=== PATIENT | female | born 1965 | race Caucasian/White ===

== ENCOUNTER 2021-02-15 14:49 | Emergency (ER) | payer MEDICAID, SELFPAY ==
[2021-02-15 15:28] VITALS: BP 123/73; PULSE 84; RESP 16; TEMP 36.5; O2SAT 98; BMI 20.5
--- NOTE | 2021-02-15 16:13 | ED.GENADULT ---
HPI - General Adult General Chief complaint: General Medical Stated complaint: hip pain, hand pain Time Seen by Provider: 02/15/21 16:13 History of Present Illness HPI narrative: Patient complains of flare up of chronic pain in the right hip and right hand, this is similar to many prior flare ups, there is no new injury no fever Patient is visiting for few days and will be returning to her home in [place] in 3 days Related Data Previous Rx's Medication Instructions Recorded cyclobenzaprine 5 mg PO TID PRN #10 tab 02/15/21 hydrocodone-acetaminophen 1 tab PO Q6H PRN #10 tab 02/15/21 Allergies Allergy/AdvReac Type Severity Reaction Status Date / Time No Known Allergies Allergy Unverified 06/22/20 17:16 Review of Systems Review of Systems: Patient is positive for right hand and right hip pain Negatives are no fever no chills no dizziness or weakness no headache no neck pain no chest pain no abdominal pain no back pain no numbness weakness or tingling no skin rash Yes all other systems are reviewed and are negative PMFSH Past Medical History Source: nursing notes reviewed Medical History (Updated 02/16/21 @ 00:01 by Krystle Pierre) Bipolar II disorder Chronic GERD Chronic interstitial cystitis Depression Fibromyalgia Greater trochanteric pain syndrome of right lower extremity IBS (irritable bowel syndrome) Insomnia Kidney stone Trigger finger of right hand Trochanteric bursitis, right hip UTI (urinary tract infection) Social History Social History Advance Directives: No Advance Directives Information Provided: No Patient : No Physical Exam Vital Signs: Vital Signs: Last Vital Signs Temp 97.7 F 02/15/21 15:28 Pulse 84 02/15/21 15:28 Resp 16 02/15/21 15:28 BP 123/73 02/15/21 15:28 Pulse Ox 98 02/15/21 15:28 Body Mass Index 20.5 General appearance no distress Head is normocephalic atraumatic Neck is supple Respiratory no acute distress Abdomen is soft nontender Extremities there is mild tenderness to the right hip but has full range of motion, same with right hand which has mild tenderness, but no redness or warmth no wounds, motor and sensory are intact in the hand as well as the right leg distal to the hip Other extremities normal Skin no rash Neuro no gross motor or sensory deficit Course Course Course Narrative: No sign of skin infection or joint infection and patient ambulated easily from the emergency room Discharge Plan Discharge Clinical Impression: Bursitis of hip, right Patient Disposition: Home, Self-Care Additional Instructions: Follow with her doctors in [place] when you go home Friday Return any concerns Prescriptions: New hydrocodone-acetaminophen 5-325 mg tablet 1 tab PO Q6H PRN (Reason: pain) Qty: 10 RF: 0 cyclobenzaprine 5 mg tablet 5 mg PO TID PRN (Reason: muscle spasm) Qty: 10 RF: 0 Interventions: ED Discharge Assessment Last Done: 02/15/21 16:29 Discharge Date/Time: 02/15/21 16:30
== END 2021-02-15 16:30 | disposition home or self-care (01) ==
PROVIDERS: Emergency Provider Emergency Medicine
DX: M70.71 Other bursitis of hip, right hip (principal)
CPT/HCPCS: 99283

== ENCOUNTER 2021-09-24 11:01 | Emergency (ER) | payer MEDICAID, SELFPAY | END 2021-09-24 16:00 | disposition left against medical advice (07) | PROVIDERS: Emergency Provider Emergency Medicine | DX: M25.559 Pain in unspecified hip (principal) ==

== ENCOUNTER 2022-03-14 15:45 | Emergency (ER) | payer MEDICAID, SELFPAY ==
--- NOTE | ~2022-03-14 | XR_ITS ---
EXAMINATION: XR FINGER, RIGHT CLINICAL INFORMATION: Right thumb pain and limited range of motion. COMPARISON: None TECHNIQUE: PA view of the hand and lateral and oblique views of the right thumb. FINDINGS: Soft tissues are swollen at the thumb MCP joint. No acute fracture or malalignment. Tiny marginal osteophytes are present at multiple joints and including the interphalangeal joints and MCP joints and first CMC joint. The tip of the hamate appears unfused to the base. No erosions. Bone mineralization is normal. 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 No acute osseous findings. Soft tissue swelling at the thumb MCP joint. Tip of the hook of the hamate is not fused, likely developmental.
--- NOTE | ~2022-03-14 | XR_ITS ---
EXAMINATION: XR LEFT HIP WITH AP PELVIS CLINICAL INFORMATION: CT dated 12/24/2016. COMPARISON: None TECHNIQUE: AP view of the pelvis and a single view of the left hip were obtained. FINDINGS: Small acetabular osteophytes. No fracture or malalignment. Bones are osteopenic. Pubic symphysis is normal. Joint spaces are well-preserved. Mild degenerative spondylosis in the lower lumbar spine. Small marginal osteophytes are also present in the right hip. Soft tissues are unremarkable. XR/XR hip LT min 2V IMPRESSION: Minimal osteoarthritis in the hips. No acute fracture or malalignment.
[2022-03-14 15:54] VITALS: BP 108/69; PULSE 91; RESP 18; TEMP 36.6; O2SAT 98; BMI 21.6
--- NOTE | 2022-03-14 17:34 | ED_ITS ---
HPI - Extremity Injury (Lower) General Chief Complaint: Extremity Injury, Lower Stated Complaint: neck pain/hip pain Time Seen by Provider: 03/14/22 17:32 Source: patient Mode of arrival: ambulatory Limitations: no limitations History of Present Illness HPI Narrative: 56-year-old female presents for left hip pain and pain in her right hand. States she has had chronic pain in her right hand, and was seen in the [facility] for this. States they could not help her with her pain in her right hand. Patient states 2 years ago she started to have left hip pain, it was worsening for the last 2 months and now is much worse last 2 days. Patient does state that she is on her feet a lot. No recent fall, trauma, or injury no fevers, no paresthesias, no bowel or bladder incontinence, no history Related Data Previous Rx's Medication Instructions Recorded cyclobenzaprine 5 mg tablet 5 mg PO TID PRN muscle spasm #10 02/15/21 tabs hydrocodone 5 mg-acetaminophen 325 1 tab PO Q6H PRN pain #10 tabs 02/15/21 mg tablet cyclobenzaprine 5 mg tablet 5 mg PO TID 5 days #15 tabs 03/14/22 ketorolac 10 mg tablet 10 mg PO TID 5 days #15 tabs 03/14/22 Allergies Allergy/AdvReac Type Severity Reaction Status Date / Time No Known Allergies Allergy Unverified 06/22/20 17:16 Review of Systems Constitutional: Constitutional: Denies body ache(s), Denies chills, Denies fatigue, Denies fever(s), Denies malaise and Denies weakness Eyes: Eyes: Denies diplopia Cardiovascular: Cardiovascular: Denies chest pain, Denies syncope, Denies leg edema, Denies lightheadedness, Denies Loss of Consciousness, Denies palpitations and Denies dyspnea Respiratory: Respiratory: Denies chest congestion, Denies cough and Denies dyspnea Gastrointestinal: Gastrointestinal: Denies abdominal pain, Denies hematochezia, Denies constipation, Denies fecal incontinence, Denies diarrhea, Denies nausea and Denies vomiting Genitourinary: Genitourinary: Denies dysuria and Denies urinary incontinence Musculoskeletal: Musculoskeletal: Denies back pain, Denies deformity, Reports arthralgias, Denies numbness, Reports radiating pain into limb and Denies tingling Neurologic: Denies confusion, Denies syncope, Denies numbness, Denies tingling and Denies weakness Psychiatric: Psychiatric: Denies anxiety, Denies confusion and Denies depression Endocrine: Endocrine: Denies fatigue and Denies palpitations PMFSH Past Medical History Medical History Bipolar II disorder Chronic GERD Chronic interstitial cystitis Depression Fibromyalgia Greater trochanteric pain syndrome of right lower extremity IBS (irritable bowel syndrome) Insomnia Kidney stone Trigger finger of right hand Trochanteric bursitis, right hip UTI (urinary tract infection) Social History Social History Advance Directives: No Advance Directives Information Provided: No Physical Exam Vital Signs: Vital Signs: Last Vital Signs Temp 98 F 03/14/22 15:54 Pulse 91 03/14/22 15:54 Resp 18 03/14/22 15:54 BP 108/69 03/14/22 15:54 Pulse Ox 98 03/14/22 15:54 O2 Del Method 03/14/22 15:54 BMI result Body Mass Index 21.6 Const: General: No confusion Nutritional Appearance: well nourished Orientation/consciousness: No confusion Limitations: no limitations Eyes: Conjunctivae: conjunctivae normal Pupils: Equal, round and reactive pupils present EOM: EOMs intact bilaterally Neck: Neck: Yes full ROM, Yes no lymphadenopathy and Yes supple Resp: Effort & Inspection: normal respiratory effort and able to speak in complete sentences Auscultation: clear to auscultation bilaterally, no crackles, no rales, no rhonchi and no wheezes Cardio: Rate: regular rate Rhythm: regular rhythm Heart sounds: S1 normal heart sound present and S2 normal heart sound present GI: Inspection: Yes normal to inspection Palpation (GI): Soft to palpation, nontender, no guarding and not rigid Percussion: Yes normal to percussion Auscultation: normal bowel sounds Skin: General skin exam: no rashes or lesions noted Neuro: General: No confusion Cranial nerves: Yes Equal, round and reactive pupils present Extrem: Right upper extremity: full ROM, normal capillary refill and wrist (ganglion cyst) Details: tenderness (over cyst), normal ROM, normal vascular exam, radial pulse present and ulnar pulse present; no swelling, no unusual warmth, no ecchymosis, no crepitus and no deformity Left lower extremity: full ROM, normal capillary refill, no joint enlargement and hip/thigh Details: normal to inspection, tenderness Location: of the hip Location: laterally and normal ROM; no ecchymosis, no crepitus, no deformity and no unusual warmth; no cyanosis and no edema Psych: Appearance: grossly normal Affect: normal affect Attitude: cooperative Thought process: Normal thought process present Course Course Course Narrative: 56-year-old female presents for left hip pain and right hand pain. X-ray shows osteoarthritis and hips osteoarthritis and right MCP joint. Patient also has a ganglion cyst in her right wrist. Patient has intact left lower extremity pulses, sensation, motor strength, DTR. She is tender on her left lateral hip. 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 Treated with ketorolac and Flexeril, will have patient follow-up with orthopedics. All patient's questions were answered,, return precautions given FINDINGS: Small acetabular osteophytes. No fracture or malalignment. Bones are osteopenic. Pubic symphysis is normal. Joint spaces are well-preserved. Mild degenerative spondylosis in the lower lumbar spine. Small marginal osteophytes are also present in the right hip. Soft tissues are unremarkable. XR/XR hip LT min 2V IMPRESSION: Minimal osteoarthritis in the hips. No acute fracture or malalignment. 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 No acute osseous findings. Soft tissue swelling at the thumb MCP joint. Tip of the hook of the hamate is not fused, likely developmental. Discharge Plan Discharge Clinical Impression: Arthritis of left hip, Ganglion cyst of dorsum of right wrist Patient Disposition: Home, Self-Care Instructions: Osteoarthritis (ED), Ganglion Cysts (ED) Additional Instructions: your x-ray shows arthritis in both of your hips and your right hand. You also appear to have a ganglion cyst in your right hand. I have prescribed medicine to your pharmacy that will help with the acute arthritis pain. However, you may need to get injections in your hip, so I will have you follow-up with orthopedics. I have referred you to them, but if you do not hear from them, please call them at this number: [phone] Prescriptions: New cyclobenzaprine 5 mg tablet 5 mg PO TID 5 Days Qty: 15 0RF ketorolac 10 mg tablet 10 mg PO TID 5 Days Qty: 15 0RF No Action hydrocodone-acetaminophen 5-325 mg tablet 1 tab PO Q6H PRN (Reason: pain) Qty: 10 0RF cyclobenzaprine 5 mg tablet 5 mg PO TID PRN (Reason: muscle spasm) Qty: 10 0RF Referrals: Paulo Sage MD [Physician] - Interventions: ED Discharge Assessment Last Done: 03/14/22 18:19 Discharge Date/Time: 03/14/22 18:19
[2022-03-14] MEDS: Cyclobenzaprine HCl 5 MG TABLET PO (18:13)
[2022-03-14] MEDS: Ketorolac Tromethamine 15 MG/ML VIAL IM (18:14)
== END 2022-03-14 18:19 | disposition home or self-care (01) ==
PROVIDERS: Emergency Provider Emergency Medicine
DX: M16.0 Bilateral primary osteoarthritis of hip (principal); M67.431 Ganglion, right wrist; M19.041 Primary osteoarthritis, right hand
CPT/HCPCS: 73140; 73502; 96372; 99283; 99284; J1885

== ENCOUNTER 2022-03-20 11:13 | Emergency (ER) | payer MEDICAID, SELFPAY ==
--- NOTE | ~2022-03-20 | XR_ITS ---
EXAMINATION: XR KNEE, RIGHT CLINICAL INFORMATION: Trauma COMPARISON: None TECHNIQUE: Four views of the right knee. FINDINGS: Bone alignment is normal. No fracture or dislocation is seen. There are small osteophytes at the patellofemoral joint. Joint spaces are otherwise normal. There is no joint effusion. XR/XR knee RT 3V IMPRESSION: Mild degenerative changes.
[2022-03-20 11:39] VITALS: BP 100/43; PULSE 76; RESP 19; TEMP 36.6; O2SAT 98; BMI 20.1
--- NOTE | 2022-03-20 13:58 | ED_ITS ---
HPI - Extremity Injury (Lower) General Chief Complaint: Extremity Injury, Lower Stated Complaint: fall r knee inj Time Seen by Provider: 03/20/22 13:57 Source: patient Mode of arrival: ambulatory Limitations: no limitations History of Present Illness HPI Narrative: Patient presents emergency department for evaluation of right knee pain. She states that she had a slip and fall at work 5 days ago, has been having right knee pain since. Denies any popping, locking, or giving out of the knee. Denies numbness or tingling to the extremity. Denies any calf pain. She ambulates with a cane. Of note patient was seen in the emergency department 6 days ago for hip and wrist pain. Was given new prescriptions for ketorolac in cyclobenzaprine which she has been taking, but is requesting prescription for Tylenol days in addition as her knee pain is completely relieved with medication. Patient states that she was given contact information for an orthopedist follow-up with, but has not yet been able to schedule an appointment. Related Data Previous Rx's Medication Instructions Recorded cyclobenzaprine 5 mg tablet 5 mg PO TID PRN muscle spasm #10 02/15/21 tabs hydrocodone 5 mg-acetaminophen 325 1 tab PO Q6H PRN pain #10 tabs 02/15/21 mg tablet cyclobenzaprine 5 mg tablet 5 mg PO TID 5 days #15 tabs 03/14/22 ketorolac 10 mg tablet 10 mg PO TID 5 days #15 tabs 03/14/22 acetaminophen 500 mg capsule 1,000 mg PO Q6H PRN pain #30 caps 03/20/22 Allergies Allergy/AdvReac Type Severity Reaction Status Date / Time No Known Allergies Allergy Unverified 06/22/20 17:16 Review of Systems Review of Systems: Musculoskeletal: Positive knee pain Yes all other systems are reviewed and are negative PMFSH Past Medical History Attestation statement: The following information was validated with the patient. Source: old records reviewed Medical History Bipolar II disorder Chronic GERD Chronic interstitial cystitis Depression Fibromyalgia Greater trochanteric pain syndrome of right lower extremity IBS (irritable bowel syndrome) Insomnia Kidney stone Trigger finger of right hand Trochanteric bursitis, right hip UTI (urinary tract infection) Physical Exam 2 Vital Signs: Vital Signs: Last Vital Signs Temp 98 F 03/20/22 11:39 Pulse 76 03/20/22 11:39 Resp 19 03/20/22 11:39 BP 100/43 L 03/20/22 11:39 Pulse Ox 98 03/20/22 11:39 O2 Del Method 03/20/22 11:39 BMI result Body Mass Index 20.1 Vital signs have been reviewed as normal and appeared to be correct. Blood pressure normal.? Heart rate normal.? Respiration rate normal. Temperature normal.? Oxygen saturation normal. Appearance: Alert.?Oriented to person, place and time. No acute distress.?Normal affect. Eyes: Pupils equal, round and reactive to light.? ENT: Pharynx normal.?? Neck: Normal inspection.? Neck supple.?? CVS: Heart sounds normal. Normal heart rate and rhythm.? Pulses normal.?? Respiratory: No respiratory distress.? Lung sounds clear to auscultation bilaterally?? Abdomen: Soft and non-tender. Skin: Skin warm and dry.? Normal skin color.? ? Extremities: No lower extremity edema.? No calf ttp. No effusion, crepitus, erythema warmth or rash. Valgus stress test negative, varus stress test negative, anterior drawer test negative, posterior drawer test negative, Sue test negative. Neuro: Moves all extremities spontaneously. Sensation intact bilaterally. No motor deficits. Ambulates with normal steady gait. Course Course Course Narrative: Patient is a 56-year-old female being evaluated for traumatic right knee pain. XR reveals no acute fracture dislocation. No erythema warmth fevers or chills, not consistent with septic arthritis. Wells score negative, unlikely DVT. Currently using a cane, ambulating with steady gait. Requesting prescription for Tylenol to be used in addition to Flexeril and ketorolac that she is currently prescribed. Suspect her pain to be secondary to a sprain of her knee in the setting of recent injury, advised outpatient follow-up with her primary care provider, discussed reasons to return back to the emergency department, all questions were answered and she was discharged home in stable condition. MDM - Extremity Injury (Lower) Medical Records Attestation: I reviewed the patient's medical records. Imaging Data XR knee: Radiologist's impression: FINDINGS: Bone alignment is normal. No fracture or dislocation is seen. There are small osteophytes at the patellofemoral joint. Joint spaces are otherwise normal. There is no joint effusion.? XR/XR knee RT 3V IMPRESSION: Mild degenerative changes. Discharge Plan Discharge Clinical Impression: Knee sprain Patient Disposition: Home, Self-Care Instructions: Knee Sprain (ED), R.I.C.E. Treatment (ED) Additional Instructions: As we discussed the x-ray of your right knee does not show any fracture dislocation. Please continue to take pain medication; ketorolac and cyclobenzaprine as previously prescribed. You can take Tylenol 500 mg, 2 tablets (1,000mg) every 4-6 hours as needed for pain, but not to exceed 3 doses daily (3,000mg).? Please contact orthopedic office to schedule an appointment for evaluation as previously advised, there contact phone numbers for [phone]. You may return to emergency department with any new or worsening symptoms or concerns. Prescriptions: New acetaminophen 500 mg capsule 1,000 mg PO Q6H PRN (Reason: pain) Qty: 30 0RF Rx Instructions: Do not exceed 3 doses, 3000 mg in one day No Action hydrocodone-acetaminophen 5-325 mg tablet 1 tab PO Q6H PRN (Reason: pain) Qty: 10 0RF cyclobenzaprine 5 mg tablet 5 mg PO TID PRN (Reason: muscle spasm) Qty: 10 0RF cyclobenzaprine 5 mg tablet 5 mg PO TID 5 Days Qty: 15 0RF ketorolac 10 mg tablet 10 mg PO TID 5 Days Qty: 15 0RF Discharge Date/Time: 03/20/22 14:28
== END 2022-03-20 14:28 | disposition home or self-care (01) ==
PROVIDERS: Emergency Provider Emergency Medicine
DX: S83.91XA Sprain of unspecified site of right knee, initial encounter (principal); W01.0XXA Fall on same level from slipping, tripping and stumbling without subsequent striking against object, initial encounter; Y93.9 Activity, unspecified; Y92.9 Unspecified place or not applicable; Y99.0 Civilian activity done for income or pay
CPT/HCPCS: 73562; 99283

== ENCOUNTER → 2022-04-04 08:55 | Outpatient (BNVA) | payer MEDICAID, SELFPAY | PROVIDERS: PCP Internal Medicine; Visit Provider Physician Assistant | DX: M54.16 Radiculopathy, lumbar region (principal) | CPT/HCPCS: 99202 ==

== ENCOUNTER → 2023-01-21 09:15 | Outpatient (BNVA) | payer MEDICAID, SELFPAY | PROVIDERS: PCP Registered Nurse; Visit Provider Nurse Practitioner | DX: K21.9 Gastro-esophageal reflux disease without esophagitis (principal); K59.04 Chronic idiopathic constipation | CPT/HCPCS: 99202 ==

== ENCOUNTER 2023-01-24 11:18 | Outpatient (REF) | payer MEDICAID, SELFPAY ==
[2023-01-24 11:36] LABS: MANUAL DIFF FLAG NO
[2023-01-24 12:24] LABS: Basophils Percent Auto 0.3 % (0-2); Eosinophils Absolute Auto 0.1 X10*3/uL (0.0-0.4); Eosinophils Percent Auto 1.8 % (0-4); Hematocrit 37.7 % (37.0-47.0); Hemoglobin 11.7 g/dl (12.0-16.0); Imm Gran Abs Auto 0.03 X10*3/uL (0.00-0.03); Imm Gran Pct Auto 0.4 % (0.0-0.4); Lymphocytes Absolute Auto 1.8 X10*3/uL (1.2-4.9); Lymphocytes Percent Auto 24.7 % (20-40); Mean Corpuscular Hemoglobin 28.7 pg (27.0-33.0); Mean Corpuscular Volume 92.6 fL (80.0-98.0); Mean Platelet Volume 8.8 fL (9.4-12.3); Monocytes Absolute Auto 0.5 X10*3/uL (0.1-1.2); Monocytes Percent Auto 6.2 % (2-11); Neutrophils Absolute Auto 4.8 x10*3/uL (2.0-8.3); Neutrophils Percent Auto 66.6 % (45-73); Platelet Count 339 X10*3/uL (160-400); Red Blood Count 4.07 X10*6/uL (4.20-5.50); Red Cell Distribution Width 12.2 % (11.0-16.0); White Blood Count 7.2 X10*3/uL (4.8-10.8)
[2023-01-24 13:01] LABS: Alanine Aminotransferase 11 U/L (0-31); Albumin Level 3.9 g/dL (3.5-5.0); Alkaline Phosphatase 70 U/L (39-117); Anion Gap 10 (12-20); Aspartate Amino Transferase 16 U/L (5-31); Bilirubin Total 0.3 mg/dL (0.0-1.0); Blood Urea Nitrogen 12 mg/dL (9-16); Carbon Dioxide 29 mmol/L (22-29); Chloride 110 mmol/L (96-108); Estimated Glomerular Filt Rate > 60; Glucose Random 79 mg/dL (60-115); Potassium 4.3 mmol/L (3.3-5.1); Sodium 145 mmol/L (135-145); Total Protein 6.3 g/dL (6.5-8.0)
[2023-01-24 13:17] LABS: TSH reflex Free T4 1.37 uIU/mL (0.32-4.0)
== END 2023-01-24 11:19 | disposition home or self-care (01) ==
LOC: HO.LAB 11:18
PROVIDERS: Visit Provider Nurse Practitioner
DX: K21.9 Gastro-esophageal reflux disease without esophagitis (principal); K59.04 Chronic idiopathic constipation
CPT/HCPCS: 36415; 80053; 84443; 85025

== ENCOUNTER 2023-02-03 13:17 | Outpatient (REF) | payer MEDICAID, SELFPAY ==
[2023-02-06 06:13] LABS: HPV mRNA E6/E7 rflx Not Detected (Not Detected)
== END 2023-02-03 13:18 | disposition home or self-care (01) ==
LOC: HO.LNP 13:17
PROVIDERS: PCP Registered Nurse; Visit Provider Obstetrics & Gynecology
DX: Z01.419 Encounter for gynecological examination (general) (routine) without abnormal findings (principal); Z11.51 Encounter for screening for human papillomavirus (HPV)
CPT/HCPCS: 87624; 88142

== ENCOUNTER → 2023-02-06 13:05 | Outpatient (BNVA) | payer MEDICAID, SELFPAY | PROVIDERS: Visit Provider Surgery Vascular Surgery | DX: I83.12 Varicose veins of left lower extremity with inflammation (principal) | CPT/HCPCS: 99202 ==

== ENCOUNTER → 2023-02-25 08:33 | Outpatient (REF) | payer MEDICAID, SELFPAY ==
--- NOTE | ~2023-02-25 | NM_ITS ---
EXAMINATION: HI RADIONUCLIDE SOLID FOOD GASTRIC EMPTYING 4-HOUR STUDY CLINICAL INFORMATION: Gastroesophageal reflux disease without esophagitis. COMPARISON: None available. TECHNIQUE: A standard meal consisting of 4 oz of Egg Beaters brand tagged with 1000 microcuries Tc-99m Sulfur Colloid, 8 oz water and 2 slices of toast with jelly was administered orally to the patient. Images were obtained using a dual head gamma camera in the anterior and posterior projections over of the stomach immediately post ingestion and at hourly intervals up to 4 hours post ingestion. The anterior and posterior counts at each time interval were averaged using the geometric mean and expressed as percentage of the immediate post ingestion counts. FINDINGS: There is good visualization of activity in the stomach immediately post ingestion. As the study progresses, there is good clearance of activity from the stomach and visualization of progressively increasing small bowel activity. By the end of the study, there is almost no retention noted in the stomach. Retention in the stomach at each time interval was: 1 hour 82% (normal 37%-90%) 2 hours 58% (normal 30%-60%) 3 hours 8% 4 hours 3% (normal 0%-10%) HI/HI gastric emptying study IMPRESSION: Normal 4-hour solid food gastric emptying study. (For solid meal, rapid gastric emptying is less than 30% at 60 minutes. Delayed gastric emptying criteria is more than 60% remaining at 120 minutes or more than 10% at 240 minutes. The 4-hour value is the best discriminator of a normal or abnormal result). Gastric emptying study grading per JNMT Consensus Recommendations in 2008 (https://tech.snmjournals.org/content/36/44) Grade 1 (mild retention): 11-20% at 4h Grade 2 (moderate retention): 21-35% at 4h Grade 3 (severe retention): 36-50% at 4h Grade 4 (very severe retention): >50% retention at 4h
== END ==
LOC: HO.NUCMED 08:33
PROVIDERS: Visit Provider Nurse Practitioner
DX: K21.9 Gastro-esophageal reflux disease without esophagitis (principal); K59.04 Chronic idiopathic constipation
CPT/HCPCS: 78264; A9541

== ENCOUNTER 2023-02-28 12:14 | Outpatient (REF) | payer MEDICAID, SELFPAY ==
--- NOTE | ~2023-02-28 | US_ITS ---
EXAMINATION: US LOWER EXTREMITY VENOUS (REFLUX EXAM), BILATERAL CLINICAL INDICATION: Lower extremity varicose veins with inflammation COMPARISON: None. TECHNIQUE: Color flow triplex imaging and compression Doppler was performed to evaluate both the deep and the superficial systems bilaterally. To evaluate the superficial system, the examination was performed in the upright position. Color-flow Doppler ultrasound and compression ultrasound were utilized. In addition, maneuvers were utilized to demonstrate reflux. FINDINGS: 1. DEEP VENOUS ULTRASOUND OF THE RIGHT LOWER EXTREMITY: Common Femoral Vein: Compressible, normal respiratory variation and augmented flow. Femoral Vein: Compressible, normal color flow and augmentation. Popliteal Vein: Compressible, normal augmentation. Deep Reflux: There is no evidence of reflux in the deep system in either the common femoral vein or the popliteal vein. There is no evidence of a Slaughter's cyst. 2. SUPERFICIAL ULTRASOUND WITH DOPPLER OF RIGHT LOWER EXTREMITY: GREAT SAPHENOUS VEIN: Saphenofemoral Junction: 0.4 cm; Reflux: 0 ms Proximal Thigh: 0.1 cm; Reflux: 0 ms Mid Thigh: 0.1 cm; Reflux: 0 ms Above Knee: Not visualized At Knee: 0.1 cm; Reflux: 0 ms Below Knee: 0.2 cm; Reflux: 0 ms Mid Calf: 0.2 cm; Reflux: 0 ms Ankle: 0.2 cm; Reflux: 0 ms DUPLICATED MEDIAL GREAT SAPHENOUS VEIN: Diameter: None imaged Reflux: NA DUPLICATED LATERAL GREAT SAPHENOUS VEIN: Diameter: 0.3 cm Reflux: None SMALL SAPHENOUS VEIN: Proximal: 0.2 cm; Reflux: 0 ms Distal: 0.1 cm; Reflux: 0 ms VEIN OF GIACOMINI: Size: NA Reflux: NA PERFORATORS: Location: Proximal calf extending to the great saphenous vein Size: 0.3 cm Reflux: 1192 ms VARICOSITIES: Location: Proximal calf arising from the great saphenous vein Size: 0.3 cm Reflux: 2820 ms 3. DEEP VENOUS ULTRASOUND OF THE LEFT LOWER EXTREMITY: Common Femoral Vein: Compressible, normal respiratory variation and augmented flow. Femoral Vein: Compressible, normal color flow and augmentation. Popliteal Vein: Compressible, normal augmentation. Deep Reflux: There is no evidence of reflux in the deep system in either the common femoral vein or the popliteal vein. There is a Slaughter's cyst in the popliteal fossa measuring 4.3 x 4.9 x 1.3 cm 4. SUPERFICIAL ULTRASOUND WITH DOPPLER OF LEFT LOWER EXTREMITY: GREAT SAPHENOUS VEIN: Saphenofemoral Junction: 0.6 cm; Reflux: 0 ms Proximal Thigh: 0.2 cm; Reflux: 0 ms Mid Thigh: Not visualized Above Knee: Not visualized At Knee: Not visualized Below Knee: 0.2 cm; Reflux: 0 ms Mid Calf: 0.2 cm; Reflux: 0 ms Ankle: 0.2 cm; Reflux: 2380 ms DUPLICATED MEDIAL GREAT SAPHENOUS VEIN: Diameter: None imaged Reflux: NA DUPLICATED LATERAL GREAT SAPHENOUS VEIN: Diameter: None imaged Reflux: NA SMALL SAPHENOUS VEIN: Proximal: 0.3 cm; Reflux: 0 ms Distal: 0.2 cm; Reflux: 0 ms VEIN OF GIACOMINI: Size: NA Reflux: NA PERFORATORS: Location: Proximal calf Size: 0.3 cm Reflux: None VARICOSITIES: Location: None Imaged Size: NA Reflux: NA US/US venous duplex LE BI IMPRESSION: Right: No significant superficial venous reflux or insufficiency in the great saphenous vein or small saphenous vein. There is a oven heater vein at and a varicose veins associated with the great saphenous vein in the proximal calf with reflux as described above Left: Focal reflux seen in the great saphenous vein at the ankle. Large Slaughter's cyst in the left popliteal fossa
== END 2023-02-28 12:15 | disposition home or self-care (01) ==
LOC: HO.US 12:14
PROVIDERS: PCP Registered Nurse; Visit Provider Surgery Vascular Surgery
DX: I83.12 Varicose veins of left lower extremity with inflammation (principal)
CPT/HCPCS: 93970

== ENCOUNTER 2023-04-09 13:17 | Outpatient (REF) | payer MEDICAID, SELFPAY ==
--- NOTE | ~2023-04-09 | US_ITS ---
EXAMINATION: US PELVIS CLINICAL INFORMATION: Postmenopausal bleeding, pelvic pain. Last menstrual period 9 months ago close to a year. Left oophorectomy. COMPARISON: Pelvic ultrasound 04/17/2010. TECHNIQUE: Ultrasound of the pelvis is performed using both transabdominal and transvaginal transducers along with Doppler. Transvaginal imaging is performed due to inadequate visualization transabdominally. Limited visualization on transabdominal ultrasound images as bladder is suboptimally distended. FINDINGS: The uterus is anteverted and measures 6.1 x 2.9 x 4.4 cm. The uterus is heterogeneous and demonstrates no discrete fibroids. Endometrial thickness is 0.3 cm, although visualization of the endometrium is limited due to uterine heterogeneity. Right ovary is unremarkable and measures 3.0 x 1.2 x 1.5 cm, volume 2.8 mL. No adnexal masses are identified. Left ovary is not visualized. No significant free fluid. US/US pelvic and transvaginal IMPRESSION: 1. Heterogeneous uterus. No discrete fibroids. 2. Endometrial thickness is 0.3 cm, although visualization of the endometrium is limited due to uterine heterogeneity. 3. Unremarkable right ovary. 4. Left ovary not visualized. Per clinical history, left ovary is surgically absent.
== END 2023-04-09 13:18 | disposition home or self-care (01) ==
LOC: HO.US 13:17
PROVIDERS: PCP Registered Nurse; Visit Provider Obstetrics & Gynecology
DX: N95.0 Postmenopausal bleeding (principal)
CPT/HCPCS: 76830; 76856

== ENCOUNTER 2023-04-17 10:21 | Outpatient (REF) | payer MEDICAID, SELFPAY ==
[2023-04-17 13:21] LABS: MANUAL DIFF FLAG NO
[2023-04-17 13:37] LABS: Basophils Percent Auto 0.3 % (0-2); Eosinophils Absolute Auto 0.1 X10*3/uL (0.0-0.4); Eosinophils Percent Auto 1.5 % (0-4); Hematocrit 38.6 % (37.0-47.0); Hemoglobin 11.9 g/dl (12.0-16.0); Imm Gran Abs Auto 0.02 X10*3/uL (0.00-0.03); Imm Gran Pct Auto 0.3 % (0.0-0.4); Lymphocytes Absolute Auto 2.3 X10*3/uL (1.2-4.9); Lymphocytes Percent Auto 29.4 % (20-40); Mean Corpuscular HGB Conc 30.8 g/dl (31.0-35.0); Mean Corpuscular Hemoglobin 29.4 pg (27.0-33.0); Mean Corpuscular Volume 95.3 fL (80.0-98.0); Mean Platelet Volume 9.1 fL (9.4-12.3); Monocytes Absolute Auto 0.6 X10*3/uL (0.1-1.2); Monocytes Percent Auto 7.5 % (2-11); Neutrophils Absolute Auto 4.8 x10*3/uL (2.0-8.3); Platelet Count 340 X10*3/uL (160-400); Red Blood Count 4.05 X10*6/uL (4.20-5.50); Red Cell Distribution Width 12.1 % (11.0-16.0); White Blood Count 7.9 X10*3/uL (4.8-10.8)
[2023-04-17 13:48] LABS: Monotest Negative (Negative)
[2023-04-17 13:57] LABS: Anion Gap 13 (12-20); Blood Urea Nitrogen 12 mg/dL (9-16); Calcium 9.8 mg/dL (8.4-10.2); Carbon Dioxide 27 mmol/L (22-29); Chloride 107 mmol/L (96-108); Estimated Glomerular Filt Rate > 60; Potassium 4.4 mmol/L (3.3-5.1); Sodium 143 mmol/L (135-145)
[2023-04-22 20:59] LABS: Aldolase 4.6 U/L (<=8.1)
== END 2023-04-17 10:22 | disposition home or self-care (01) ==
LOC: HO.CHCLDS 10:21
PROVIDERS: Visit Provider Family Medicine
DX: M54.2 Cervicalgia (principal)
CPT/HCPCS: 36415; 80051; 82085; 82310; 82550; 82565; 84520; 85025; 86308

== ENCOUNTER 2023-04-17 21:00 | Outpatient (REF) | payer MEDICAID, SELFPAY | END 2023-04-17 21:01 | disposition home or self-care (01) | LOC: HO.HHCLNP 21:00 | PROVIDERS: Visit Provider Family Medicine | DX: M54.2 Cervicalgia (principal) | CPT/HCPCS: 87070 ==

== ENCOUNTER 2023-05-13 14:10 | Outpatient (AMB) | payer MEDICAID, SELFPAY ==
--- NOTE | 2023-05-13 14:21 | MHC.OFFVIS ---
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 Co testing was negative. Pelvic ultrasound showed the following: The uterus is anteverted and measures 6.1 x 2.9 x 4.4 cm. The uterus is heterogeneous and demonstrates no discrete fibroids. Endometrial thickness is 0.3 cm, although visualization of the endometrium is limited due to uterine heterogeneity. Right ovary is unremarkable and measures 3.0 x 1.2 x 1.5 cm, volume 2.8 mL. No adnexal masses are identified. Left ovary is not visualized. No significant free fluid. The patient has had multiple episodes of vaginal bleeding since last episode. PFSH Medical History Arthritis Bipolar II disorder Chronic abdominal pain Chronic GERD Chronic interstitial cystitis CLEM III (cervical intraepithelial neoplasia grade III) with severe dysplasia Depression Depression Fibromyalgia Greater trochanteric pain syndrome of right lower extremity Hx LEEP (loop electrosurgical excision procedure), cervix, Hx of LEEP (loop electrosurgical excision procedure) of cervix complicating IBS (irritable bowel syndrome) Insomnia Nephrolithiasis Normal esophagogastroduodenoscopy (EGD) Osteoporosis Trigger finger of right hand Trochanteric bursitis, right hip UTI (urinary tract infection) Surgical History H/O cystoscopy History of left oophorectomy Family History Mother Emphysema lung Social History Patient Tobacco Use Status: Current everyday Tobacco user Current occupational status: employed 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, 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 Female Reproductive History Menstrual Age of Menarche: 14 Review of Systems Const All systems reviewed & are unremarkable except as noted in HPI and below Reports as per HPI and Reports no additional complaints GI Reports no additional complaints Reports no additional complaints Physical Exam Vital Signs: Last Vital Signs BP 106/58 L 08/08/23 14:22 BMI result Body Mass Index 19.8 Assessment & Plan Assessment & Plan (1) Postmenopausal bleeding: Code(s): N95.0 - Postmenopausal bleeding Plan: Discussed with the patient the results of the pelvic ultrasound showing an endometrial stripe thickness of 3 mm. Explained to the patient with an endometrial stripe of 4 mm &/or less, there is a high negative predictive value in detecting endometrial pathology including endometrial hyperplasia, polyps or malignancy. Therefore, there is no indication for endometrial sampling. But since the patient had recurrent episodes of vaginal bleeding, recommended endometrial sampling, for the patient to options of endometrial sampling either EMB versus hysteroscopy D&C possible polypectomy all pros and cons, risks benefits of each were discussed with the patient, the patient decided to proceed with endometrial biopsy would like to come back for it. Instructions given the patient to schedule endometrial biopsy [place]. All questions answered, the patient verbalized understanding and agreed with the plan. Coding Level of Care Code Est Pt Level 3 (08638) Diagnoses Postmenopausal bleeding N95.0
[2023-05-13 14:22] VITALS: BP 106/58; BMI 19.8
== END 2023-05-13 15:24 | disposition home or self-care (01) ==
LOC: HO.HWS 14:10
PROVIDERS: PCP Registered Nurse; Visit Provider Obstetrics & Gynecology
DX: N95.0 Postmenopausal bleeding (principal)
CPT/HCPCS: 99213

== ENCOUNTER → 2023-05-13 14:10 | Outpatient (BNVA) | payer MEDICAID, SELFPAY | PROVIDERS: PCP Registered Nurse; Visit Provider Obstetrics & Gynecology | DX: N95.0 Postmenopausal bleeding (principal); D06.9 Carcinoma in situ of cervix, unspecified; Z90.721 Acquired absence of ovaries, unilateral | CPT/HCPCS: 99212 ==

== ENCOUNTER 2023-05-21 09:03 | Outpatient (AMB) | payer MEDICAID, SELFPAY ==
--- NOTE | 2023-05-21 09:11 | MHC.OFFVIS ---
Intake Vital Signs 05/21/23 09:13 Height 5 ft 5 in Weight 116 lb BMI 19.3 BP 104/64 Intake Visit Reasons: EMB Senior Care Specialist Required: Yes Senior Care Specialist Language: Family Resource Management Specialist Name: Mariana Longo Information Interpreted: non-clinical & clinical Intermediate Accountant: Intermediate Accountant Present (Mariana) Allergies No Known Allergies Allergy (Verified 05/21/23 09:18) Is last menstrual period known: No Post menopausal: Yes Patient : No Do you need a note to return to daycare/school/sports/work: Yes (for surgery on friday) HPI HPI Comments History of Present Illness Details Presenting for endometrial biopsy for recurrent postmenopausal bleeding ultrasound endometrial stripe was 3 mm but the patient has been having recurrent vaginal bleeding since then. Last co testing was done in 02/25 and was negative PFSH Medical History Arthritis Bipolar II disorder Chronic abdominal pain Chronic GERD Chronic interstitial cystitis CLEM III (cervical intraepithelial neoplasia grade III) with severe dysplasia Depression Depression Fibromyalgia Greater trochanteric pain syndrome of right lower extremity Hx LEEP (loop electrosurgical excision procedure), cervix, Hx of LEEP (loop electrosurgical excision procedure) of cervix complicating IBS (irritable bowel syndrome) Insomnia Nephrolithiasis Normal esophagogastroduodenoscopy (EGD) Osteoporosis Trigger finger of right hand Trochanteric bursitis, right hip UTI (urinary tract infection) Surgical History H/O cystoscopy History of left oophorectomy Family History Mother Emphysema lung Social History Patient Tobacco Use Status: Current everyday Tobacco user Current occupational status: employed 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, 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 Female Reproductive History Menstrual Age of Menarche: 14 Date of last menstrual period: 08/03/20 Total pregnancies: 2 Full term: 2 Date of last pap smear: 02/04/23 (negative) History of abnormal pap smear: Yes Review of Systems Card Reports as per HPI and Reports no additional complaints Resp Reports as per HPI and Reports no additional complaints GI Reports as per HPI and Reports no additional complaints Reports as per HPI Physical Exam Vital Signs: Last Vital Signs BP 104/64 05/21/23 09:13 BMI result Body Mass Index 19.3 Const General: cooperative, healthy appearing and comfortable Chest Chest palpation & inspection: normal inspection of the chest and normal palpation of entire chest wall Breast/axilla inspection: normal inspection of the breasts and normal inspection of the axillae Breast/axilla palpation: normal palpation of the breasts, normal palpation of the axillae and no axillary lymphadenopathy Resp Effort & Inspection: normal respiratory effort Auscultation: clear to auscultation bilaterally Percussion: percussion normal Cardio Palpation: normal PMI Rate: regular rate Rhythm: regular rhythm Heart sounds: no murmurs and no rubs Peripheral pulses: Peripheral pulses 2+ throughout GI Inspection: Yes normal to inspection Palpation (GI): Soft to palpation, nontender, no guarding, not rigid and No hepatosplenomegaly present Percussion: Yes normal to percussion Auscultation: normal bowel sounds Rectal Exam - Female: deferred Assessment & Plan Assessment & Plan (1) Postmenopausal bleeding: Code(s): N95.0 - Postmenopausal bleeding Plan: EMB attempted, not tolerated by the patient. The patient asked abort the procedure would like to have endometrial sampling done under anesthesia. Will schedule hysteroscopy D&C possible polypectomy/myomectomy. Discussed with the patient the procedure , all benefits and risks including but not limited to inability to complete the procedure , bleeding, infection, possible need for blood transfusion with all its risk ( HIV,syphilis, Hepatitis, anaphylaxis shock, others..), injury to bladder, rectum, possible need for laparoscopy/laparotomy or hysterectomy. The patient verbalized understanding and signed the consent. Instructions given the patient to schedule a 2 week postoperative appointment Coding Level of Care Code Est Pt Level 3 (49972) Diagnoses Postmenopausal bleeding N95.0
[2023-05-21 09:13] VITALS: BP 104/64; BMI 19.3
== END 2023-05-21 10:17 | disposition home or self-care (01) ==
LOC: HO.HWS 09:03
PROVIDERS: PCP Registered Nurse; Visit Provider Obstetrics & Gynecology
DX: N95.0 Postmenopausal bleeding (principal)
CPT/HCPCS: 99213

== ENCOUNTER → 2023-05-21 09:03 | Outpatient (BNVA) | payer MEDICAID, SELFPAY | PROVIDERS: PCP Registered Nurse; Visit Provider Obstetrics & Gynecology | DX: N95.0 Postmenopausal bleeding (principal) | CPT/HCPCS: 99212 ==

== ENCOUNTER 2023-06-13 07:20 | Day surgery (SDC) | payer MEDICAID, SELFPAY ==
[2023-06-11 10:22] VITALS: BMI 19.3
--- NOTE | 2023-06-12 08:48 | HO.ANESPROP2 ---
Documented by User: Fern Jennings NP 06/12/23 08:49 HPI - Anesthesia Eval Consult details Narrative: 57yo F for D&C Hysteroscopy,poss myomectomy,poss polypectomy, PMFSH Active Problems Active Problems: All Active Problems (Updated 02/06/23 @ 14:03 by Bhavesh Corbin MD) Varicose veins of left lower extremity with inflammation (Acute) Epigastric pain (Acute) Postmenopausal bleeding (Acute) Well woman exam (Acute) Chronic idiopathic constipation (Acute) Chronic GERD (Acute) Lumbar radicular pain (Acute) Past Medical History Medical History CLEM III (cervical intraepithelial neoplasia grade III) with severe dysplasia Hx of LEEP (loop electrosurgical excision procedure) of cervix complicating Osteoporosis Arthritis Normal esophagogastroduodenoscopy (EGD) Nephrolithiasis Depression Chronic abdominal pain Greater trochanteric pain syndrome of right lower extremity UTI (urinary tract infection) Chronic interstitial cystitis Insomnia Trochanteric bursitis, right hip IBS (irritable bowel syndrome) Fibromyalgia Chronic GERD Bipolar II disorder Trigger finger of right hand Family History Family History Mother Emphysema lung Surgical History Surgical History H/O cystoscopy History of left oophorectomy Social History Social History Patient Tobacco Use Status: Current everyday Tobacco user Advance Directives: No Advance Directives Information Provided: Yes Current occupational status: employed 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, 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 Meds Allergies Allergy/AdvReac Type Severity Reaction Status Date / Time No Known Allergies Allergy Verified 06/13/23 07:29 Home Medications Medication Instructions Recorded Confirmed Last Taken Type acetaminophen 650 mg 650 mg PO Q8H PRN fever 01/21/23 Unknown History tablet,extended release buprenorphine 8 mg-naloxone 2 mg 30 mg sublingual DAILY 01/21/23 Unknown History sublingual film (Suboxone) cetirizine 10 mg tablet 10 mg PO DAILY PRN allergies 01/21/23 Unknown History cyclobenzaprine 5 mg tablet 5 mg PO TID PRN muscle spasm 01/21/23 Unknown History diclofenac sodium 1 % topical gel 2 g topical QID PRN pain 01/21/23 Unknown History hydroxyzine HCl 25 mg tablet 25 mg PO TID PRN anxiety 01/21/23 Unknown History naloxone 4 mg/actuation nasal spray 0 spray intranasal 01/21/23 Unknown History omeprazole 40 mg capsule,delayed 40 mg PO DAILY 01/21/23 Unknown History release tizanidine 2 mg tablet 2 - 4 mg PO BEDTIME PRN muscle pain 01/21/23 Unknown History trazodone 50 mg tablet 25 - 50 mg PO BEDTIME PRN insomnia 01/21/23 Unknown History Exam Exam Date and Time: June 12, 2023 0848 Height,Weight and Vital Signs: Height 5 ft 5 in Weight 52.617 kg Pertinent Lab Results Pertinent Lab Results: Laboratory Tests 04/17/23 10:28 WBC 7.9 Hgb 11.9 L Hct 38.6 Plt Count 340 Sodium 143 Potassium 4.4 Chloride 107 Carbon Dioxide 27 BUN 12 Creatinine 0.66 Assessment and Plan Assessment Anesthesia Assessment: Chart Reviewed Documented by User: Tresa Carrasquillo MD 06/13/23 07:36 PMFSH Past Medical History Medical History CLEM III (cervical intraepithelial neoplasia grade III) with severe dysplasia Hx of LEEP (loop electrosurgical excision procedure) of cervix complicating Osteoporosis Arthritis Normal esophagogastroduodenoscopy (EGD) Nephrolithiasis Depression Chronic abdominal pain Greater trochanteric pain syndrome of right lower extremity UTI (urinary tract infection) Chronic interstitial cystitis Insomnia Trochanteric bursitis, right hip IBS (irritable bowel syndrome) Fibromyalgia Chronic GERD Bipolar II disorder Trigger finger of right hand Family History Family History Mother Emphysema lung Family history of problems with anesthesia: No Surgical History Surgical History H/O cystoscopy History of left oophorectomy History of Problems with Anesthesia: No Social History Social History Patient Tobacco Use Status: Current everyday Tobacco user Advance Directives: No Advance Directives Information Provided: Yes Current occupational status: employed 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, 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 Meds Allergies Allergy/AdvReac Type Severity Reaction Status Date / Time No Known Allergies Allergy Verified 06/13/23 07:29 Home Medications Medication Instructions Recorded Confirmed Last Taken Type acetaminophen 650 mg 650 mg PO Q8H PRN fever 01/21/23 Unknown History tablet,extended release buprenorphine 8 mg-naloxone 2 mg 30 mg sublingual DAILY 01/21/23 Unknown History sublingual film (Suboxone) cetirizine 10 mg tablet 10 mg PO DAILY PRN allergies 01/21/23 Unknown History cyclobenzaprine 5 mg tablet 5 mg PO TID PRN muscle spasm 01/21/23 Unknown History diclofenac sodium 1 % topical gel 2 g topical QID PRN pain 01/21/23 Unknown History hydroxyzine HCl 25 mg tablet 25 mg PO TID PRN anxiety 01/21/23 Unknown History naloxone 4 mg/actuation nasal spray 0 spray intranasal 01/21/23 Unknown History omeprazole 40 mg capsule,delayed 40 mg PO DAILY 01/21/23 Unknown History release tizanidine 2 mg tablet 2 - 4 mg PO BEDTIME PRN muscle pain 01/21/23 Unknown History trazodone 50 mg tablet 25 - 50 mg PO BEDTIME PRN insomnia 01/21/23 Unknown History Exam Airway Mallampati Class: II TM Dist: >3cm Neck ROM: Full Heart: rrr Lungs: cta Assessment and Plan Assessment Anesthesia Assessment: Anesthesia Plan Discussed Final Anesthetic Review Family History of Problems with Anesthesia: No History of Problems with Anesthesia: No NPO: Yes ASA Class: II Final Preanesthetic Review: No Changes in Pt Med Stat, Meds/Allgs Chart Reviewed, Consent Obtained/Reviewed and Anes Risks/Benef Reviewed Patient Risk: Low Procedure Risk: Low Anesthetic Plan Anesthetic Plan: MAC: Disposition: Standard PACU
[2023-06-13] VITALS (9 sets, daily range): BP systolic 129–161; BP diastolic 64–104; PULSE 52–79; RESP 15–20; TEMP 36.8–36.9; O2SAT 99–100
--- NOTE | 2023-06-13 07:34 | MHC.SHP ---
Pre-Procedural Eval Section A Date of Service: 06/13/23 The patient is an INPATIENT: No Changes since office visit: No Cold of Flu in the past 2 weeks, No New Medical Problems, No Changes in Medication and No Patient answered all questions The History & Physical has been completed within 30 days and I have reviewed it.: Yes Section B Chief Complaint: Postmenopausal bleeding Allergies: Allergies Allergy/AdvReac Type Severity Reaction Status Date / Time No Known Allergies Allergy Verified 06/13/23 07:29 Plan Diagnosis/Plan: Unchanged I have reviewed the history and physical and performed a pertinent physical examination on my patient. No changes have occurred unless specified. Time Spent With Patient Time: Total time managing care of this patient today ____ minutes.
[2023-06-13] MEDS: Lactated Ringers 1,000 ML 100 ML IVCONT (07:47)
--- NOTE | 2023-06-13 08:57 | P.OP_ITS ---
Operative Note Operative Note Date of Service: 06/13/23 Narrative: Preop Diagnosis: Post Menopausal bleeding Operation: Diagnostic Hysteroscopy, Dilataion & Curettage Post Op Diagnosis: Normal endometrial cavity QBL: Minimal Anesthesia: GLMA Surgeon: Cale Nunez MD Artificial Breast Fabricator: None Complication: None Pathology: Endometrial Scrapings Procedure: The patient was put in the dorsal lithotomy position, scrubbed, and draped in the usual manner. A sterile speculum was inserted in the patient's vagina. The anterior lip of the cervix was grasped with a single tooth tenaculum. The cervix was dilated up to 5 mm, then the scope was inserted in the patient's uterus. Inspection revealed Normal endometrial cavity. The Myosure Reach device was used; the scope was removed from the endometrial cavity , sharp curettings was carried on with minimal amount of tissues retrieved. At the end of the procedure, all instruments were taken out of the patient uterine and vaginal cavity. The single tooth tenaculum was removed and homeostasis was assured using pressure,. The patient tolerated the procedure well and was transferred to the PACU in a stable condition.
--- NOTE | 2023-06-13 08:57 | PM.OP ---
Brief Operative Note Date of Service: 06/13/23 Pre-op diagnosis: Postmenopausal bleeding Post-op diagnosis: same (Normal endometrial cavity) Procedure: Hysteroscopy D&C Surgeon: Cale Nunez MD Anesthesia: GLMA Was an Fiberglass Roller used for this Procedure?: No Estimated blood loss (mL): 0 Pathology: other (Endometrial Scrapping.) Condition: stable Disposition: PACU
[2023-06-13] MEDS: oxyCODONE HCl Immed Release 5 MG TABLET PO (09:14)
[2023-06-13] MEDS: fentaNYL citrate/PF 100 MCG/2 ML VIAL 25 MCG IVPUSH ×2 (09:15→09:20)
== END 2023-06-13 10:10 | disposition home or self-care (01) ==
PROVIDERS: PCP Registered Nurse; Visit Provider Obstetrics & Gynecology
PROC: 0UDB8ZZ Extraction of Endometrium, Via Natural or Artificial Opening Endoscopic (ICD-10-PCS; CPT 58558; principal; 2023-06-13 08:30)
DX: N95.0 Postmenopausal bleeding (principal); Z90.721 Acquired absence of ovaries, unilateral; M19.90 Unspecified osteoarthritis, unspecified site; M79.7 Fibromyalgia; M81.0 Age-related osteoporosis without current pathological fracture; F32.A Depression, unspecified; Z98.890 Other specified postprocedural states; F17.210 Nicotine dependence, cigarettes, uncomplicated
CPT/HCPCS: 58558; 88305; J1885; J2405; J3010

== ENCOUNTER → 2023-06-13 07:20 | Outpatient (BNV) | payer MEDICAID, SELFPAY | PROVIDERS: PCP Registered Nurse; Visit Provider Obstetrics & Gynecology | DX: N95.0 Postmenopausal bleeding (principal) | CPT/HCPCS: 58558 ==

== ENCOUNTER 2023-07-01 11:56 | Outpatient (AMB) | payer MEDICAID, SELFPAY ==
[2023-07-01 11:57] VITALS: BP 110/66; BMI 19.8
--- NOTE | 2023-07-01 11:57 | A.OFFVIS_ITS ---
Intake Vital Signs 07/01/23 11:57 Height 5 ft 5 in Weight 119 lb BMI 19.8 BP 110/66 Intake Visit Reasons: post op Allergies No Known Allergies Allergy (Verified 06/13/23 07:29) HPI HPI Comments History of Present Illness Details The patient is presenting post hysteroscopy D&C no complaints minimal vaginal bleeding no feverishness chills or abdominal pain. The pathology showed the following: Endometrium, curettage: Predominantly blood and strips of inactive endometrium; negative for atypia, hyperplasia or malignancy PFSH Medical History CLEM III (cervical intraepithelial neoplasia grade III) with severe dysplasia Hx of LEEP (loop electrosurgical excision procedure) of cervix complicating Osteoporosis Arthritis Normal esophagogastroduodenoscopy (EGD) Nephrolithiasis Depression Chronic abdominal pain Greater trochanteric pain syndrome of right lower extremity UTI (urinary tract infection) Chronic interstitial cystitis Insomnia Trochanteric bursitis, right hip IBS (irritable bowel syndrome) Fibromyalgia Chronic GERD Bipolar II disorder Trigger finger of right hand Surgical History H/O cystoscopy History of left oophorectomy Family History Mother Emphysema lung Social History Patient Tobacco Use Status: Former Tobacco user Quit Date: 2 yrs ago Current occupational status: employed 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 Discussed with the patient the sensitivity, specificity, positive and negative predictive value, of endometrial biopsy in detecting endometrial pathology including but not limited to endometrial hyperplasia, cancer and other pathology; instructed the patient to call in case is vaginal bleeding bleeding recurs, the next step will be to proceed with further endometrial sampling evaluation to rule out endometrial pathology. All questions answered and the patient verbalized understanding and agreed with the plan. Coding Level of Care Code Est Pt Level 3 (75827) Diagnoses Postmenopausal bleeding N95.0
== END 2023-07-01 12:16 | disposition home or self-care (01) ==
PROVIDERS: PCP Registered Nurse; Visit Provider Obstetrics & Gynecology
DX: N95.0 Postmenopausal bleeding (principal)
CPT/HCPCS: 99213

== ENCOUNTER → 2023-07-01 11:56 | Outpatient (BNVA) | payer MEDICAID, SELFPAY | PROVIDERS: PCP Registered Nurse; Visit Provider Obstetrics & Gynecology | DX: N95.0 Postmenopausal bleeding (principal) | CPT/HCPCS: 99212 ==

== ENCOUNTER 2023-07-21 13:39 | Outpatient (AMB) | payer MEDICAID, SELFPAY ==
[2023-07-21 13:47] VITALS: BP 134/80; BMI 20.5
--- NOTE | 2023-07-21 13:47 | MHC.OFFVIS ---
Intake Vital Signs 07/21/23 13:47 Height 5 ft 5 in Weight 123 lb BMI 20.5 BP 134/80 Intake Visit Reasons: discharge w/odor Registered Nurse Surgical Services Required: No Information Interpreted: non-clinical & clinical Psychiatric Nursing Assistant: Psychiatric Nursing Assistant Present Allergies No Known Allergies Allergy (Verified 07/21/23 13:50) Is last menstrual period known: No Post menopausal: Yes HPI HPI Comments History of Present Illness Details The patient is presenting complaining of vaginal dark/plan discharge . Patient the pelvic ultrasound medial stripe was 3 mm, EMB was done in 06/28 which showed inactive endometrium with no evidence endometrial hyperplasia nor malignancy. Co testing was done in 02/25 which was negative PFSH Medical History CLEM III (cervical intraepithelial neoplasia grade III) with severe dysplasia Hx of LEEP (loop electrosurgical excision procedure) of cervix complicating Osteoporosis Arthritis Normal esophagogastroduodenoscopy (EGD) Nephrolithiasis Depression Chronic abdominal pain Greater trochanteric pain syndrome of right lower extremity UTI (urinary tract infection) Chronic interstitial cystitis Insomnia Trochanteric bursitis, right hip IBS (irritable bowel syndrome) Fibromyalgia Chronic GERD Bipolar II disorder Trigger finger of right hand Surgical History H/O cystoscopy History of left oophorectomy Family History Mother Emphysema lung Social History Patient Tobacco Use Status: Former Tobacco user Quit Date: 2 yrs ago Current occupational status: employed 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, 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 Female Reproductive History Menstrual Age of Menarche: 14 control method: none Date of last pap smear: 02/04/23 (negative) Review of Systems Const All systems reviewed & are unremarkable except as noted in HPI and below Physical Exam Vital Signs: Last Vital Signs BP 134/80 07/21/23 13:47 BMI result Body Mass Index 20.5 General: Yes no CVA tenderness External Female Exam: normal external appearance and normal appearance of the urethra Speculum Exam - Vagina: normal appearance of the vagina, normal palpation, no lesions and no masses Speculum Exam - Cervix: normal palpation, Cervical lesion present (11+ 06:00 o'clock cervical abrasions), no masses and nontender Bimanual exam- vagina & uterus: normal bimanual exam, normal palpation, uterine size normal, normal palpation, uterine shape normal, No Cervical tenderness present and non-tender Bimanual Exam- Adnexa, other: normal adnexae Back/Spine/Pelvis Back: no CVA tenderness 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 Monsel solution used for hemostasis. The patient tolerated well . At the end the patient was instructed to call if temp>100.4, abdominal pain, n/v, bleeding; The patient was given the following instructions: nothing per vagina, no intercourse or bath tub use. All questions answered the patient verbalized understanding. Instructed the patient to make an appointment in 2 weeks for follow-up This note was generated with a voice recognition program. Some errors may have been overlooked during the review of this note. Sometimes these errors may affect the content or meaning of a given sentence. 24699-Ujgocl of Cervix Procedure code (CPT) selection complete Assessment & Plan Assessment & Plan (1) Postmenopausal bleeding: Comment: Cervical abrasions at 11 and 06:00 o'clock Code(s): N95.0 - Postmenopausal bleeding Plan: Discussed with the patient the finding on pelvic exam showing 2 cervical abrasions , GC/chlamydia with BV panel taken, recommended cervical biopsies from 11+ 06:00 o'clock, biopsy done, see procedure note. Instructions given the patient to schedule a 2 week follow-up appointment if vaginal bleeding/spotting is persistent and cervical biopsies are negative, will proceed with repeat EMB versus hysteroscopy D&C possible polypectomy. All questions answered, the patient verbalized understanding. Instructions given the patient to schedule a 2 week follow-up appointments. 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
== END 2023-07-21 14:20 | disposition home or self-care (01) ==
PROVIDERS: PCP Registered Nurse; Visit Provider Obstetrics & Gynecology
DX: N76.0 Acute vaginitis (principal); B96.89 Other specified bacterial agents as the cause of diseases classified elsewhere; N95.0 Postmenopausal bleeding
CPT/HCPCS: 57500; 99213

== ENCOUNTER 2023-07-21 13:39 | Outpatient (REF) | payer MEDICAID, SELFPAY ==
[2023-07-21 18:25] LABS: CT PCR NOT DETECTED (Not Detect.); NG PCR NOT DETECTED (Not Detect.)
[2023-07-22 12:40] LABS: BV Int Neg Control Negative (Negative); BV Int Pos Control Positive (Positive)
== END 2023-07-21 13:40 | disposition home or self-care (01) ==
LOC: HO.LNP 13:39
PROVIDERS: PCP Registered Nurse; Visit Provider Obstetrics & Gynecology
DX: N95.0 Postmenopausal bleeding (principal); N76.0 Acute vaginitis; B96.89 Other specified bacterial agents as the cause of diseases classified elsewhere
CPT/HCPCS: 0353U; 57500; 87480; 87510; 87660; 88305; 99212

== ENCOUNTER 2023-07-22 15:20 | Outpatient (AMB) | payer MEDICAID, SELFPAY ==
--- NOTE | 2023-07-22 15:25 | A.OFFVIS_ITS ---
Intake Vital Signs 07/22/23 15:28 Height 5 ft 5 in Weight 123 lb BMI 20.5 Intake Visit Reasons: follow up US Intake Note: Pt here for a s/p US on 02/28/23/ with hx of bilateral LE hx of Ablation in 2008 Pt states that she is doing better but she still has some pain in left leg and has a new cut on her knee that she wants the dr to look at Allergies No Known Allergies Allergy (Verified 07/22/23 15:28) HPI follow up US HPI Details very complex 57-year-old female presents for evaluation regarding lower extremity swelling. She has had previous venous procedures by Dr. Tyson dating back to 2008. She reports swollen lower extremities and she is concerned about multiple spider telangiectasias throughout her lower extremities. She now presents for follow-up evaluation. [facility] Medical History CLEM III (cervical intraepithelial neoplasia grade III) with severe dysplasia Hx of LEEP (loop electrosurgical excision procedure) of cervix complicating Osteoporosis Arthritis Normal esophagogastroduodenoscopy (EGD) Nephrolithiasis Depression Chronic abdominal pain Greater trochanteric pain syndrome of right lower extremity UTI (urinary tract infection) Chronic interstitial cystitis Insomnia Trochanteric bursitis, right hip IBS (irritable bowel syndrome) Fibromyalgia Chronic GERD Bipolar II disorder Trigger finger of right hand Surgical History H/O cystoscopy History of left oophorectomy Family History Mother Emphysema lung Social History Patient Tobacco Use Status: Former Tobacco user Quit Date: 2 yrs ago Current occupational status: employed 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, 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 Female Reproductive History Menstrual Age of Menarche: 14 Review of Systems Const Reports as per HPI ENT Reports no additional complaints Card Denies chest pain, Denies chest pain at rest and Denies chest pain with activity Resp Denies chest congestion and Denies cough GI Reports no additional complaints Musc Details: pain over varicosities, aching of lower extremities, swelling, cramping, heaviness and tiredness, itching Denies abnormal gait Skin/Breast Reports pruritus and Denies wounds Neuro Reports no additional complaints and Denies abnormal gait Psych Denies no additional complaints Physical Exam Vital Signs: BMI result Body Mass Index 20.5 Const General: cooperative, healthy appearing and comfortable Orientation/consciousness: oriented to person, oriented to place and oriented to time Neck Carotids: no bruits Chest Chest palpation & inspection: normal inspection of the chest and normal palpation of entire chest wall Resp Effort & Inspection: normal respiratory effort and able to speak in complete sentences Cardio Rate: regular rate Heart sounds: S1 normal heart sound present and S2 normal heart sound present Peripheral pulses: Peripheral pulses 2+ throughout GI Inspection: Yes normal to inspection Skin Other: +2 edema, Multiple spider telangiectasias General skin exam: dry skin Neuro General: oriented to person, oriented to place and oriented to time Extrem Right lower extremity: full ROM, normal capillary refill and edema Left lower extremity: full ROM, normal capillary refill and edema Psych Mental Status: mental status grossly normal Results Reviewed Results Reviewed: Brief summary of venous insufficiency testing is as follows: right great saphenous vein: ablated right small saphenous vein: negative right accessory vein: none present left great saphenous vein: ablated left small saphenous vein: negative left accessory vein: none present Please note there is no evidence of any venous aneurysms or significant tortuosity Assessment & Plan Assessment & Plan (1) Varicose veins of left lower extremity with inflammation: Code(s): I83.12 - Varicose veins of left lower extremity with inflammation Plan: in short patient has lower extremity swelling. I did review her venous insufficiency testing with her which has shown to be negative. She does have multiple spider telangiectasias and I did explain to her that this would be more cosmetic in nature. In terms of her swelling we did discuss routine conservative measures including compression elevation and exercise. She will follow up with us on an as-needed basis. Thank you for allowing us to assist in her care. If there are any questions or concerns please do not hesitate to contact us. Coding Level of Care Code Est Pt Level 4 (39212) Diagnoses Varicose veins of left lower extremity with inflammation I83.12
[2023-07-22 15:28] VITALS: BMI 20.5
== END 2023-07-22 15:52 | disposition home or self-care (01) ==
PROVIDERS: PCP Registered Nurse; Visit Provider Surgery Vascular Surgery
DX: I83.12 Varicose veins of left lower extremity with inflammation (principal)
CPT/HCPCS: 99213

== ENCOUNTER → 2023-07-22 15:20 | Outpatient (BNVA) | payer MEDICAID, SELFPAY | PROVIDERS: PCP Registered Nurse; Visit Provider Surgery Vascular Surgery | DX: I83.12 Varicose veins of left lower extremity with inflammation (principal) | CPT/HCPCS: 99212 ==

== ENCOUNTER 2023-09-01 10:04 | Emergency (ER) | payer MEDICAID, SELFPAY ==
--- NOTE | ~2023-09-01 | XR_ITS ---
EXAMINATION: XR HIP, LEFT CLINICAL INFORMATION: Pain, fall. COMPARISON: Radiograph left hip 03/14/2022. TECHNIQUE: Two views of the left hip. FINDINGS: No acute fracture or malalignment. 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 SI joints are symmetric. Pubic symphysis and pelvic rami are maintained. No significant soft tissue abnormality. XR/XR hip LT w PEL1V IMPRESSION: No acute fracture or malalignment. Mild degenerative osteoarthritis.
[2023-09-01 10:38] VITALS: BP 123/84; PULSE 81; RESP 18; TEMP 37.5; O2SAT 98; BMI 20.8
[2023-09-01 12:51] LABS: Influenza A PCR NEGATIVE (Negative); Influenza B PCR NEGATIVE (Negative); Resp Syncy Virus RNA Qual PCR NEGATIVE (Negative); SARS COV2 PCR INHOUSE NEGATIVE (Negative)
[2023-09-01 14:52] VITALS: BP 126/66; PULSE 70; RESP 20; TEMP 36.6; O2SAT 100
--- NOTE | 2023-09-01 15:10 | ED.GENADULT ---
HPI - General Adult General Chief complaint: General Medical Stated complaint: Headache Time Seen by Provider: 09/01/23 15:01 Source: patient Mode of arrival: ambulatory Limitations: no limitations History of Present Illness HPI narrative: Patient suffers from anxiety, states that she had a slip in the shower 4 days ago and now has continued hip pain and left neck pain. No LOC, no vomiting, no dizziness Onset (ago): day(s) Location: neck and pelvis Severity: mild Related Data Home Medications Medication Instructions Recorded Confirmed acetaminophen 650 mg 650 mg PO Q8H PRN fever 01/21/23 tablet,extended release buprenorphine 8 mg-naloxone 2 mg 30 mg sublingual DAILY 01/21/23 sublingual film (Suboxone) cetirizine 10 mg tablet 10 mg PO DAILY PRN allergies 01/21/23 cyclobenzaprine 5 mg tablet 5 mg PO TID PRN muscle spasm 01/21/23 diclofenac sodium 1 % topical gel 2 g topical QID PRN pain 01/21/23 hydroxyzine HCl 25 mg tablet 25 mg PO TID PRN anxiety 01/21/23 naloxone 4 mg/actuation nasal spray 0 spray intranasal 01/21/23 omeprazole 40 mg capsule,delayed 40 mg PO DAILY 01/21/23 release tizanidine 2 mg tablet 2 - 4 mg PO BEDTIME PRN muscle pain 01/21/23 trazodone 50 mg tablet 25 - 50 mg PO BEDTIME PRN insomnia 01/21/23 Previous Rx's Medication Instructions Recorded hydrocodone 5 mg-acetaminophen 325 1 tab PO Q6H PRN pain #10 tabs 02/15/ mg tablet ketorolac 10 mg tablet 10 mg PO TID 5 days #15 tabs 03/14/22 docusate sodium 100 mg capsule 100 mg PO DAILY #30 ea 06/16/23 metronidazole 500 mg tablet 500 mg PO BID 7 days #14 tabs 07/22/23 sennosides 8.6 mg tablet (senna) 17.2 mg (2 x 8.6 mg) PO BEDTIME 08/05/23 for constipation #60 tabs naproxen 500 mg tablet (Naprosyn) 500 mg PO BID #20 tabs 09/01/23 Allergies Allergy/AdvReac Type Severity Reaction Status Date / Time No Known Allergies Allergy Verified 07/22/23 15:28 Review of Systems Review of Systems: Yes all other systems are reviewed and are negative Neurologic: Denies Sensory deficit (Neuro) [facility] Past Medical History Medical History CLEM III (cervical intraepithelial neoplasia grade III) with severe dysplasia Hx of LEEP (loop electrosurgical excision procedure) of cervix complicating Osteoporosis Arthritis Normal esophagogastroduodenoscopy (EGD) Nephrolithiasis Depression Chronic abdominal pain Greater trochanteric pain syndrome of right lower extremity UTI (urinary tract infection) Chronic interstitial cystitis Insomnia Trochanteric bursitis, right hip IBS (irritable bowel syndrome) Fibromyalgia Chronic GERD Bipolar II disorder Trigger finger of right hand Surgical History H/O cystoscopy History of left oophorectomy Family History Family History Mother Emphysema lung Social History Patient Tobacco Use Status: Former Tobacco user Quit Date: 2 yrs ago Current occupational status: employed 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, 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 Physical Exam ED Vital Signs: Vital Signs - 24 hr 09/01/23 10:38 09/01/23 14:52 Temperature 99.5 F 97.9 F Pulse Rate 81 70 Respiratory Rate 18 20 Blood Pressure 123/84 126/66 Pulse Oximetry 98 100 Oxygen Delivery Method Room Air Room Air BMI result Body Mass Index 20.8 Const Other: anxious, very thin Nutritional Appearance: average body habitus Orientation/consciousness: oriented to person and patient oriented x3 Limitations: no limitations HENMO Head: Yes normal to inspection Ears: external ears normal General nose exam: Normal external nose present Mouth: Normal oral and palatal mucosa present and oropharynx normal Throat: Yes posterior oropharynx normal Eyes General: appearance normal, both eyes and all related structures Neck Neck: Yes normal visual inspection Chest Chest palpation & inspection: normal inspection of the chest Resp Auscultation: clear to auscultation bilaterally Cardio Jugular venous distension: no JVD Rate: regular rate Rhythm: regular rhythm Heart sounds: S1 normal heart sound present and S2 normal heart sound present GI Inspection: Yes normal to inspection Palpation (GI): Soft to palpation, nontender and No hepatosplenomegaly present Auscultation: normal bowel sounds General: Yes no CVA tenderness Back/Spine/Pelvis Back: no CVA tenderness Skin General skin exam: no rashes or lesions noted Neuro General: oriented to person and patient oriented x3 Cranial nerves: Yes CN's II-XII intact bilaterally Motor exam (neuro): 5/5 motor strength present throughout Sensory Exam: No Sensory deficit (Neuro) Extrem General: Yes normal to inspection Psych Appearance: grossly normal Course Reevaluation(s) Reevaluation #1: Patient with normal exam will start nsaids for her pain Time: 15:13 Medical Decision Making Differential Diagnosis Differential Diagnoses: The differential diagnosis associated with the presentation includes neck strain, hip contusion, anxiety, myalgias all considered Lab Data MDM Lab Attestation statement: I reviewed the patient's lab results. Labs: Lab Results 09/01/23 Range/Units 12:09 Influenza Type A (PCR) NEGATIVE (Negative) Influenza Type B (PCR) NEGATIVE (Negative) RSV RNA Qual (PCR) NEGATIVE (Negative) SARS-CoV-2 RNA (RT-PCR) NEGATIVE (Negative) Independent Interpretation I performed an independent interpretation of an: Plain X-Ray (pelvis and hip negative for fracture) Tests considered The following testing was considered but not selected: considered CT of neck and head but patient with supple neck, non focal neuro exam after 4 days Prescription Management I considered prescription management with: Pain Medication (narcotic pain meds considered but patient should be on nsaids and has a history of narcotic abuse) Social Determinants Patient?s care significantly limited by Social Determinants of Health including: Alcoholism and drug addiction in family Discharge Plan Discharge Clinical Impression: Hip strain, Neck strain Patient Disposition: Home, Self-Care Instructions: Muscle Strain (ED) Prescriptions: New naproxen [Naprosyn] 500 mg tablet 500 mg PO BID Qty: 20 0RF No Action docusate sodium 100 mg capsule 100 mg PO DAILY Qty: 30 3RF metronidazole 500 mg tablet 500 mg PO BID 7 Days Qty: 14 0RF sennosides [senna] 8.6 mg tablet 17.2 mg PO BEDTIME Qty: 60 1RF hydrocodone-acetaminophen 5-325 mg tablet 1 tab PO Q6H PRN (Reason: pain) Qty: 10 0RF ketorolac 10 mg tablet 10 mg PO TID 5 Days Qty: 15 0RF cyclobenzaprine 5 mg tablet 5 mg PO TID PRN (Reason: muscle spasm) omeprazole 40 mg capsule,delayed release(DR/EC) 40 mg PO DAILY trazodone 50 mg tablet 25 - 50 mg PO BEDTIME PRN (Reason: insomnia) hydroxyzine HCl 25 mg tablet 25 mg PO TID PRN (Reason: anxiety) buprenorphine-naloxone [Suboxone] 8-2 mg film 30 mg sublingual DAILY tizanidine 2 mg tablet 2 - 4 mg PO BEDTIME PRN (Reason: muscle pain) acetaminophen 650 mg tablet extended release 650 mg PO Q8H PRN (Reason: fever) diclofenac sodium 1 % gel 2 g topical QID PRN (Reason: pain) cetirizine 10 mg tablet 10 mg PO DAILY PRN (Reason: allergies) naloxone 4 mg/actuation spray,non-aerosol 0 spray intranasal
[2023-09-01] MEDS: Ketorolac Tromethamine 60 MG/2 ML VIAL IM (15:30)
== END 2023-09-01 16:04 | disposition home or self-care (01) ==
PROVIDERS: Physician Assistant Medical; Emergency Provider Emergency Medicine; PCP Internal Medicine
DX: S76.012A Strain of muscle, fascia and tendon of left hip, initial encounter (principal); S16.1XXA Strain of muscle, fascia and tendon at neck level, initial encounter; W18.2XXA Fall in (into) shower or empty bathtub, initial encounter; R51.9 Headache, unspecified; Z20.822 Contact with and (suspected) exposure to COVID-19; Z20.828 Contact with and (suspected) exposure to other viral communicable diseases; Z87.891 Personal history of nicotine dependence; Y93.E1 Activity, personal bathing and showering; Y92.012 Bathroom of single-family (private) house as the place of occurrence of the external cause; Y99.9 Unspecified external cause status
CPT/HCPCS: 0241U; 73502; 96372; 99283; 99284; J1885

== ENCOUNTER 2023-09-10 09:30 | Outpatient (RCR) | payer MEDICAID, SELFPAY ==
--- NOTE | 2023-08-26 11:38 | MHC.OT.EP ---
[address] [phone] Occupational Therapy Plan of Care Patient Name: Lyssa Leonard Date of Evaluation: 08/26/23 Diagnosis: Bilateral chronic hand pain Pain Location: Pain bilateral hands. CMC joints 9/10 Best: 6/10 Pain Score: 9 Pain Scale Used: Numeric (0 - 10) Aggravating Factors: Lifting, forceful grasp, cold weather Alleviating Factors: Heat, pain patch, arthritis cream Assessment: Pt is a 57 y/o female referred to OT w/ bilateral chronic hand pain. Pt reports several year history of 9/10 bilateral hand pain, primarily in CMC joints. Pt reports pain can radiate up forearms to bilateral shoulders. Occasional tingling noted in thumbs with c/o intermittent 'locking' in digits. Pt w/ history of multi-joint arthritis and fibromyalgia. Shoulder ROM is WFL's, although she does c/o pain and stiffness. Significant limitations in c-spine rotation and lateral flexion. Issued handout for home stretches. On assessment, pt. with low municipal bond trader strength 20# on the R and 12# on the left, impaired fine motor coordination, and an 88.6% limitation per the Quick DASH. Pt would benefit from skilled OT services to address noted barriers and assist in maximize functional IND. Frequency and Duration: The patient will be seen 2w/wk for 4 weeks Short Term Goals: Decrease bilateral hand pain <5/10 IND with thermal modalities for pain mgt IND with orthosis wear Pals Nurse Goals: Dec bilateral hand pain <3/10 IND with progression of HEP Improve bilateral thumb ROM to WNL's Improve gross grasp by 10# each Quick DASH 45% Treatment Plan: Therapeutic Exercise Therapeutic Activity Home Exercise Program Splinting Patient Education ADL Training Ultrasound Fluidotherapy MHP Joint Mobilization Soft Tissue Mobilization Kinesiotaping Electronically Signed By: Sultana Barragan MS OTR/L Please Sign and return to therapist. Thank you once again for your referral.
== END 2023-09-24 11:42 | disposition home or self-care (01) ==
LOC: HO.OT 09:30
PROVIDERS: PCP Registered Nurse; Visit Provider Registered Nurse
DX: M79.642 Pain in left hand (principal); M79.641 Pain in right hand; G89.29 Other chronic pain
CPT/HCPCS: 29130; 97110; 97166; 97760

== ENCOUNTER 2023-09-16 13:44 | Outpatient (REF) | payer MEDICAID, SELFPAY ==
[2023-09-17 08:37] LABS: Syphilis Screen Nonreactive (Nonreactive)
[2023-09-17 08:56] LABS: HIV AB/AG Nonreactive (Nonreactive); HIV Num 1 0.04 S/CO (0.00-0.99); ~Hepatitis C Antibody Nonreactive (Nonreactive)
[2023-09-17 09:00] LABS: HBS Num1 0.43 mIU/mL (0-7.99); HBc Num1 0.17 S/CO (0.00-0.79); HBsAGNum1 0.26 S/CO (0.00-0.99); Hepatitis B Core Antibody Nonreactive (Nonreactive); Hepatitis B Surface Antigen Negative (Negative); ~Hepatitis B Surface Antibody NONREACTIVE (Nonreactive)
[2023-09-17 09:04] LABS: Hepatitis A Antibody IgG Nonreactive (Nonreactive); ~Hepatitis A Antibody IgG 0.19 S/CO (0.00-0.99)
[2023-09-19 09:08] LABS: TS Negative Control Passed; TS Panel A 0; TS Panel B 0; TS Positive Control Passed; TSpotTB Negative (Negative)
== END 2023-09-16 13:45 | disposition home or self-care (01) ==
LOC: HO.HHCL 13:44
PROVIDERS: Visit Provider Emergency Medicine
DX: Z11.4 Encounter for screening for human immunodeficiency virus [HIV] (principal); Z11.1 Encounter for screening for respiratory tuberculosis; F11.20 Opioid dependence, uncomplicated
CPT/HCPCS: 36415; 86481; 86704; 86706; 86708; 86780; 86803; 87340; 87389

== ENCOUNTER 2023-10-15 12:58 | Outpatient (AMB) | payer MEDICAID, SELFPAY ==
[2023-10-15 13:02] VITALS: BP 116/68; BMI 20.5
--- NOTE | 2023-10-15 13:02 | MHC.OFFVIS ---
Intake Vital Signs 10/15/23 13:02 Height 5 ft 5 in Weight 123 lb 7.342 oz BMI 20.5 BP 116/68 Intake Visit Reasons: Cervical bx follow up Pediatric Social Worker Required: No Information Interpreted: non-clinical & clinical Accompanied by: Self / Same As Patient Allergies No Known Allergies Allergy (Verified 10/15/23 13:06) Post menopausal: Yes HPI HPI Comments History of Present Illness Details Presenting for follow-up regarding cervical biopsies for abnormal finding on pelvic exam showing cervical abrasion at 11 and 06:00 o'clock. The patient is doing well complaining of versus vaginal spotting/bleeding. The pathology cervical biopsies done in 07/28 showed the following: A. Cervix, 11:00, biopsy: Squamous mucosa with inflammation and biopsy site changes; negative for dysplasia; no endocervical glandular component present. B. Cervix, 6:00, biopsy: Squamous mucosa with inflammation and biopsy site changes; negative for dysplasia; no endocervical glandular component present EMB done in 06/28, pathology showed inactive endometrium with no evidence of hyperplasia and or atypia Co testing done in 02/25 was negative Pelvic ultrasound done in 04/27 showed a 3 mm endometrial thickness otherwise unremarkable [facility] Medical History CLEM III (cervical intraepithelial neoplasia grade III) with severe dysplasia Hx of LEEP (loop electrosurgical excision procedure) of cervix complicating Osteoporosis Arthritis Normal esophagogastroduodenoscopy (EGD) Nephrolithiasis Depression Chronic abdominal pain Greater trochanteric pain syndrome of right lower extremity UTI (urinary tract infection) Chronic interstitial cystitis Insomnia Trochanteric bursitis, right hip IBS (irritable bowel syndrome) Fibromyalgia Chronic GERD Bipolar II disorder Trigger finger of right hand Surgical History H/O cystoscopy History of left oophorectomy Family History Mother Emphysema lung Social History Patient Tobacco Use Status: Former Tobacco user Quit Date: 2 yrs ago Current occupational status: employed 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 Discussed with the patient the sensitivity, specificity, positive and negative predictive value, of endometrial biopsy in detecting endometrial pathology including but not limited to endometrial hyperplasia, cancer and other pathology; since the patient is having persistent vaginal bleeding, recommended repeat endometrial sampling via EMB versus hysteroscopy D&C possible polypectomy/myomectomy. All pros and cons, risks and benefits of each were discussed with the patient, the patient decided to proceed with repeat EMB in the office. Instructions given the patient to schedule an appointment for a repeat EMB [place]. All questions answered and the patient verbalized understanding and agreed with the plan. Coding Level of Care Code Est Pt Level 3 (66946) Diagnoses Postmenopausal bleeding N95.0
== END 2023-10-15 13:32 | disposition home or self-care (01) ==
LOC: HO.HWS 12:58
PROVIDERS: PCP Internal Medicine; Visit Provider Obstetrics & Gynecology
DX: N95.0 Postmenopausal bleeding (principal)
CPT/HCPCS: 99213

== ENCOUNTER → 2023-10-15 12:58 | Outpatient (BNVA) | payer MEDICAID, SELFPAY | PROVIDERS: PCP Internal Medicine; Visit Provider Obstetrics & Gynecology | DX: N95.0 Postmenopausal bleeding (principal) | CPT/HCPCS: 99212 ==

== ENCOUNTER 2023-10-28 08:32 | Outpatient (AMB) | payer MEDICAID, SELFPAY ==
--- NOTE | 2023-10-28 08:39 | A.OFFVIS_ITS ---
Intake Vital Signs 10/28/23 08:40 Height 5 ft 5 in Weight 125 lb BMI 20.8 BP 101/63 Blood Pressure Location Rt brachial Position Sitting Pulse 72 Intake Visit Reasons: f/u - r/s from 10/10 Intake Note: Patient presents to in office visit today in follow up of gastric emptying and labs. CC: Patient c/o abdominal pain, bloating, weight loss, occasional constipation, and heartburn. Ship Officer Required: No Accompanied by: Self / Same As Patient Allergies No Known Allergies Allergy (Verified 10/28/23 08:50) HPI f/u - r/s from 10/10 HPI Details Assessment & Plan (1) Chronic GERD: ?Code(s): K21.9 - Gastro-esophageal reflux disease without esophagitis ?Plan: ?68-year-old female here to reestablish GERD multiple GI issues.? She was last s een in 2016 by Loree Kwong, and at that time she was treated with pantoprazole for GERD and dicyclomine for irritable bowel.? She had upper endoscopy that showed mild gastritis with a biopsy that was negative for H pylori or other severe disease.? She has had no other imaging workup with regards to her ?chronic abdominal pain. ?? Of note, she has a history of fibromyalgia syndrome as well as interstitial cystitis. She was living [facility] for a few years.? She denies having any significant workup including endoscopies done while she was away. She says that she suffers gallbladder problems and gastritis. She has not had a cholecystectomy. She says something was put in it but this was in [place] - so I don't have records about this.? I wonder if she is confused between this and a possible urinary stent for nephrolithiasis.? She is on omeprazole bid but she still has stomach burning. Unintended weight loss is a problem as she weighed 141 lb in 2017 to 123 lb today, and she says she can't eat much. This is r/t early satiety and pain. The.? pain starts in the epigastrum and radiate to the left as a burning pain with bloating.? This is the pain she has experience chronically for years, but started really worsening about 7 months ago. She can not really say that BM's would make it better.? It is not consistently related to eating. Her last EGD was in 2010, and she never had colonoscopy.? This is concerning because she has a family history of multiple cancers including colon cancer in her maternal uncle and cancer of unknown origin in her brother who recently . She only moves her bowel q 2 days, the stools are very hard.? She has to strain pass her stools and this does seem to exacerbate her pain somewhat but it is inconsistent.? She does not take any laxatives and only has tried to manage it with prunes. She admits she gets too busy and forgets to drink fluids. She has to avoid red meat and cheese r/t her IC. She says she eats a lot of fruits and veggies and greens; at least she would if her appetite was not limited by early satiety. At this point we discussed colonoscopy and she is agreeable to this.? We will also get ultrasound to check out her gallbladder in see if gallstones are part of the problem, and a gastric emptying study to further investigate her early satiety along with an upper endoscopy.? She is willing to go over basic lab work and I will do a thyroid given her weight loss.? There are no prior problems with anesthesia or sedation.? She denies any cardiac or respiratory problems.? There are no infectious disease problems. I will see her in 4 weeks after starting her on senna and Colace and titrate the treatment to get her constipation moving.? Will see how this affects the upper GI symptoms before we consider if she needs to change her PPI from omeprazole to something else. (2) Chronic idiopathic constipation: ?Code(s): K59.04 - Chronic idiopathic constipation ? ? ? Orders: Orders Complete Blood Cou nt Auto Diff Today K21.9 - Gastro-eso phageal reflux dis ease without esoph agitis, K59.04 - C hronic idiopathic constipation ? Comprehensive Met. Panel Today K21.9 - Gastro-eso phageal reflux dis ease without esoph agitis, K59.04 - C hronic idiopathic constipation ? TSH reflex Free T4 Today K21.9 - Gastro-eso phageal reflux dis ease without esoph agitis, K59.04 - C hronic idiopathic constipation ? US abdomen complet e Today K21.9 - Gastro-eso phageal reflux dis ease without esoph agitis, K59.04 - C hronic idiopathic constipation ? NM gastric emptyin g study Today K21.9 - Gastro-eso phageal reflux dis ease without esoph agitis, K59.04 - C hronic idiopathic constipation ? Medications: New Csennosides (senna) 17.2 mg (2 x 8.6 m g) PO BEDTIME 30 d ays 60 caps 1RF co nstipation ? ? docusate sodium (C olace) 100 mg? PO .DAILY WITH FOOD 30 days 30 caps 3RF K59.04 - Chronic i diopathic constipa tion ? [place] Laboratory Tests 01/24/23 04/17/23 11:35 10:28 WBC 7.9 RBC 4.05 L Hgb 11.9 L Hct 38.6 MCV 95.3 MCH 29.4 Plt Count 340 Estimated GFR > 60 Total Bilirubin 0.3 AST 16 ALT 11 Alkaline Phosphata se 70 TSH 1.37 ULTRASOUND OF THE ABDOMEN NOT OBTAINED GASTRIC EMPTYING STUDY 02/26/23 MPRESSION: Normal 4-hour solid food gastric emptying study. ? CORRESPONDENCE On 07/07/23 @ 11:47 Elvia Iniguez Wrote To Dixon,January FYI- PT coming tomorrow 07/08, labs and gastric emptying study done but she did not show for US. Message sent to order retirement officer to call patient to r/s US. TODAY'S VISIT I have not seen the patient since January 2023, she failed to follow-up for her 4 week visit. She did not return because she is having continued trouble with vaginal bleeding and has had to have colposcopies with gynecology. This continues to be a proble m and she will be having another 1 next week. She continues to suffer constipation but she finds the senna affective. Nevertheless she also has quite a lot of upper abdominal bloating that causes her pain especially in the right upper quadrant. At times it is sensitive to touch. She can not identify any particular foods that seem to cause her the most trouble and she does say that the problem is intermittent and not always related to eating. Apparently, at times it is also related to walking. Because she has not been back she has no longer taking the dicyclomine which I will restart, and she may also benefit from some simethicone. She has been changed from pantoprazole to omeprazole and she says sometimes she has to take 2 of them. Because of this, I will also add famotidine to take for breakthrough since her insurance likely isn't covering twice a day PPI. Again, she continues on senna with good control of constipation. I think an ultrasound is important given her symptom set. I am going to ask my staff to follow-up on this. She has been changing her phone number recently and this may be why we were never able to contact her to schedule the exam. I am also requesting a stool for H pylori. Because of her ongoing and continued symptoms I think an EGD and a colonoscopy would be appropriate. There are no prior problems with anesthesia or sedation.? She denies any cardiac or respiratory problems.? There are no infectious disease problems. She has a family history of multiple cancers including colon cancer in her maternal uncle and cancer of unknown origin in her brother who recently . ROV 3 weeks, change preferred phone has changed. [phone] [facility] Medical History (Updated 10/28/23 @ 10:48 by FIOR Mcclelland) CLEM III (cervical intraepithelial neoplasia grade III) with severe dysplasia Hx of LEEP (loop electrosurgical excision procedure) of cervix complicating Osteoporosis Arthritis Normal esophagogastroduodenoscopy (EGD) Nephrolithiasis Depression Chronic abdominal pain Greater trochanteric pain syndrome of right lower extremity UTI (urinary tract infection) Chronic interstitial cystitis Insomnia Trochanteric bursitis, right hip IBS (irritable bowel syndrome) Fibromyalgia Chronic GERD Bipolar II disorder Trigger finger of right hand Surgical History (Updated 10/28/23 @ 10:49 by FIOR Mcclelland) H/O esophagogastroduodenoscopy H/O cystoscopy History of left oophorectomy Family History Mother Emphysema lung Social History Patient Tobacco Use Status: Former Tobacco user Quit Date: 2 yrs ago Current occupational status: employed 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, 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 Female Reproductive History Menstrual Age of Menarche: 14 Review of Systems Const Denies fatigue, Denies fever(s), Denies night sweats, Reports poor appetite and Reports weight loss Eyes Details: glasses Reports requires corrective lenses ENT Reports Normal hearing present, Denies dental pain, Denies dysphagia, Denies hearing loss, Denies mouth pain, Denies odynophagia, Denies throat swelling, Denies tongue swelling and Reports other (Dentition adequate) Card Reports no additional complaints Resp Reports no additional complaints GI Reports abdominal pain, Denies melena, Reports bloating, Denies hematochezia, Reports constipation, Reports GI cramping, Denies dysphagia, Denies excessive flatus, Reports early satiety, Reports heartburn, Denies diarrhea, Denies nausea, Denies odynophagia, Denies vomiting and Denies hematemesis Reports abnormal vaginal bleeding Musc Reports abnormal gait, Reports back pain and Reports arthralgias Skin/Breast Denies pruritus, Denies lesions, Denies rash and Denies jaundice Neuro Reports Normal hearing present, Denies Abnormal speech present and Reports abnormal gait Psych Reports anxiety Endo Denies fatigue Aller/Immun Denies throat swelling and Denies tongue swelling Physical Exam Vital Signs: Last Vital Signs Pulse 72 10/28/23 08:40 BP 101/63 10/28/23 08:40 BMI result Body Mass Index 20.8 Const General: cooperative, no acute distress, well developed and well groomed Nutritional Appearance: average body habitus and well nourished Orientation/consciousness: oriented to person, oriented to place and oriented to time Limitations: No language barrier and ambulation with cane HEENT Head: Yes normocephalic and Yes atraumatic Eyes General: appearance normal, both eyes and all related structures Pupils: Equal, round and reactive pupils present Neck Neck: Yes normal visual inspection and Yes no lymphadenopathy Thyroid: Thyroid normal Resp Effort & Inspection: normal respiratory effort and able to speak in complete sentences Auscultation: clear to auscultation bilaterally Cardio Rate: regular rate Rhythm: regular rhythm Heart sounds: Normal, physiologic split S2 sound present Peripheral pulses: radial pulses present and posterior tibial pulses present GI Inspection: Yes distended (Mild upper abdomen) and No Abdominal panniculus present Palpation (GI): Soft to palpation, Tenderness to palpation present (GI) (Right upper quadrant very mild), no guarding, not rigid and No hepatosplenomegaly present Percussion: Yes normal to percussion Auscultation: normal bowel sounds Rectal Exam - Female: deferred Skin General skin exam: no rashes or lesions noted, turgor normal, skin not dry, no jaundice, No spider nevi and no striae Rashes: no rashes Nails: normal Neuro General: oriented to person, oriented to place and oriented to time Cranial nerves: Yes Equal, round and reactive pupils present and Yes Normal hearing present Speech: No Abnormal speech present Extrem General: Yes normal to inspection, No clubbing, No cyanosis and No edema Psych Appearance: grossly normal and well kempt Mental Status: mental status grossly normal Speech and movement: Normal speech and movement present Affect: normal affect Attitude: cooperative Thought process: not confabulating and Impoverished thought process present Thought content: Normal thought content present Insight: Limited insight present (Psych) Judgement: Limited judgement present (Psych) Results Reviewed Results Reviewed: Laboratory Tests 01/24/23 04/17/23 11:35 10:28 WBC 7.9 RBC 4.05 L Hgb 11.9 L Hct 38.6 MCV 95.3 MCH 29.4 Plt Count 340 Estimated GFR > 60 Total Bilirubin 0.3 AST 16 ALT 11 Alkaline Phosphatase 70 TSH 1.37 GASTRIC EMPTYING STUDY 02/26/23 MPRESSION: Normal 4-hour solid food gastric emptying study. Assessment & Plan Assessment & Plan (1) Chronic idiopathic constipation: Code(s): K59.04 - Chronic idiopathic constipation (2) Chronic GERD: Code(s): K21.9 - Gastro-esophageal reflux disease without esophagitis (3) Epigastric pain: Code(s): R10.13 - Epigastric pain (4) Pre-op examination: Code(s): Z01.818 - Encounter for other preprocedural examination Plan I have not seen the patient since January 2023, she failed to follow-up for her 4 week visit. She did not return because she is having continued trouble with vaginal bleeding and has had to have colposcopies with gynecology. This continues to be a problem and she will be having another 1 next week. She continues to suffer constipation but she finds the senna affective. Nevertheless she also has quite a lot of upper abdominal bloating that causes her pain especially in the right upper quadrant. We reviewed the gastric emptying study and this is normal so she has not having early satiety and bloating from this. At times it is sensitive to touch. She can not identify any particular foods that seem to cause her the most trouble and she does say that the problem is intermittent and not always related to eating. Apparently, at times it is also related to walking. Because she has not been back she has no longer taking the dicyclomine which I will restart, and she may also benefit from some simethicone. She has been changed from pantoprazole to omeprazole and she says sometimes she has to take 2 of them. Because of this, I will also add famotidine to take for breakthrough since her insurance likely isn't covering twice a day PPI. Again, she continues on senna with good control of constipation. I think an ultrasound is important given her symptom set. I am going to ask my staff to follow-up on this. She has been changing her phone number recently and this may be why we were never able to contact her to schedule the exam. I am also requesting a stool for H pylori. Because of her ongoing and continued symptoms I think an EGD and a colonoscopy would be appropriate. There are no prior problems with anesthesia or sedation.? She denies any cardiac or respiratory problems.? There are no infectious disease problems. She has a family history of multiple cancers including colon cancer in her maternal uncle and cancer of unknown origin in her brother who recently . ROV 3 weeks, change preferred phone has changed. [phone] Orders: Orders EGD/[place] Combo - GI Use Only Today K21.9 - Gastro-esophageal reflux disease without esophagitis, K59.04 - Chronic idiopathic constipation, R10.13 - Epigastric pain Medications: New dicyclomine 10 mg PO QID 120 caps 6RF omeprazole 40 mg PO DAILY 30 caps 6RF famotidine (Pepcid) 40 mg PO BEDTIME 30 tabs 6RF Refilled sennosides (senna) 17.2 mg (2 x 8.6 mg) PO BEDTIME 60 tabs 6RF for constipation Coding Level of Care Code Est Pt Level 4 (45708) Diagnoses Chronic idiopathic constipation K59.04 Chronic GERD K21.9 Epigastric pain R10.13 Pre-op examination Z01.818 Time Spent (min) 31
[2023-10-28 08:40] VITALS: BP 101/63; PULSE 72; BMI 20.8
== END 2023-10-28 09:34 | disposition home or self-care (01) ==
PROVIDERS: PCP Internal Medicine; Visit Provider Nurse Practitioner
DX: K59.04 Chronic idiopathic constipation (principal); K21.9 Gastro-esophageal reflux disease without esophagitis; Z01.818 Encounter for other preprocedural examination
CPT/HCPCS: 99214

== ENCOUNTER → 2023-10-28 08:32 | Outpatient (BNVA) | payer MEDICAID, SELFPAY | PROVIDERS: PCP Internal Medicine; Visit Provider Nurse Practitioner | DX: Z01.818 Encounter for other preprocedural examination (principal); K21.9 Gastro-esophageal reflux disease without esophagitis; K59.04 Chronic idiopathic constipation; R10.13 Epigastric pain | CPT/HCPCS: 99212 ==

== ENCOUNTER 2023-11-10 13:21 | Outpatient (REF) | payer MEDICAID, SELFPAY ==
[2023-11-10 15:14] LABS: Estimated Average Glucose 94 mg/dL; Hemoglobin A1c % 4.9 % (<6.0)
== END 2023-11-10 13:22 | disposition home or self-care (01) ==
LOC: HO.CHCLDS 13:21
PROVIDERS: Visit Provider Registered Nurse
DX: Z00.00 Encounter for general adult medical examination without abnormal findings (principal); Z13.1 Encounter for screening for diabetes mellitus
CPT/HCPCS: 36415; 83036

== ENCOUNTER 2024-02-02 10:37 | Outpatient (REF) | payer MEDICAID, SELFPAY ==
--- NOTE | ~2024-02-02 | XR_ITS ---
EXAMINATION: XR RIBS, RIGHT CLINICAL INFORMATION: Order states 58-year-old with a history of falls. Fell one and a half weeks ago in the shower tub. Check x-ray to rule out fracture. Patient stated pain is right anterior lower ribs under breast. Radiopaque BB marker placed on all rib films. COMPARISON: None available. TECHNIQUE: 4 views of the right ribs. FINDINGS: Lungs are well-inflated. There is no gross pneumothorax. Heart size is normal. Mild S-shaped thoracolumbar scoliosis with multilevel degenerative changes. Radiopaque marker placed indicating tear of concern indicated by the patient overlying the right [id number] ribs. No displaced right rib fracture is appreciated. XR/XR ribs RT min 3V w CXR1V IMPRESSION: 1. No displaced right rib fracture is appreciated. 2. Mild S-shaped thoracolumbar scoliosis with multilevel degenerative changes. This study was presented today today February 02, 2024
== END 2024-02-02 10:38 | disposition home or self-care (01) ==
LOC: HO.HHCX 10:37
PROVIDERS: Visit Provider Registered Nurse
DX: Z91.81 History of falling (principal)
CPT/HCPCS: 71101

== ENCOUNTER 2025-04-26 13:37 | Outpatient (REF) | payer MEDICAID, SELFPAY ==
--- OUTSIDE RECORDS SUMMARY | 2021-02-06 00:06 | XMS_ITS | Encounter Summary ---
[facility] Address [address] [place] [address] Support Name Relationship Address Phone [place] [address] Iza Marsh Daughter [address] [place] [address] Care Team Providers Care Medical Technologist Name Role Phone Michael Cooley MD Primary Care Provide r Encounter Details Date Type Department Care Team (Late st Contact Info) Description 02/06/2021 12:06 AM EDT Hospital Encounter [facility] [address] [facility] 2nd [place] [id number] [facility] [address] [place] [address] Social History Tobacco Use Types Packs/Day Years Used Date Smoking Tobacco: Never Assessed Comments Unknown Sex and Gender Information Value Date Recorded Sex Assigned at Not on file Legal Sex Female 4:12 PM EDT Gender Identity Not on file Sexual Orientation Not on file documented as of this encounter Plan of Treatment Not on file documented as of this encounter Visit Diagnoses Not on filedocumented in this encounter Care Teams Medical Technologist Relationship Specialty Start Date End Date Michael Cooley MD [address] [place] [address] PCP - General 02/02/21 documented as of this encounter
[2025-04-26 16:10] LABS: MANUAL DIFF FLAG NO
[2025-04-26 16:23] LABS: Appearance Urine Clear; Glucose Urine UA Negative (Negative); PH 6.0 (5.0-9.0); Specific Gravity - Urine 1.015 (1.005-1.025)
[2025-04-26 16:26] LABS: Hematocrit 37.6 % (37.0-47.0); Hemoglobin 11.9 g/dl (12.0-16.0); Imm Gran Abs Auto 0.01 X10*3/uL (0.00-0.03); Imm Gran Pct Auto 0.2 % (0.0-0.4); Lymphocytes Absolute Auto 2.2 X10*3/uL (1.2-4.9); Mean Corpuscular HGB Conc 31.6 g/dl (31.0-35.0); Mean Corpuscular Hemoglobin 29.6 pg (27.0-33.0); Mean Corpuscular Volume 93.5 fL (80.0-98.0); NRBC Abs Auto 0.000 X10*3/uL (0.0-0.012); NRBC Pct Auto 0.0 /100WBC (0.0-0.2); Platelet Count 307 X10*3/uL (160-400); Red Blood Count 4.02 X10*6/uL (4.20-5.50); White Blood Count 5.7 X10*3/uL (4.8-10.8)
[2025-04-26 16:40] LABS: Alanine Aminotransferase 21 U/L (0-31); Albumin Level 4.1 g/dL (3.5-5.0); Alkaline Phosphatase 83 U/L (39-117); Anion Gap 10 (12-20); Aspartate Amino Transferase 20 U/L (5-31); Blood Urea Nitrogen 12 mg/dL (9-16); Calcium 8.7 mg/dL (8.4-10.2); Carbon Dioxide 30 mmol/L (22-29); Chloride 107 mmol/L (96-108); Cholesterol 180 mg/dL (<200); Estimated Glomerular Filt Rate > 60; HDL Cholesterol 48 mg/dL (>40); Hemoglobin A1C 111.4981 umol/L; Potassium 4.0 mmol/L (3.3-5.1); Sodium 143 mmol/L (135-145); Total Hemoglobin (HGBA1C) 3104.2010 umol/L; Total Protein 6.7 g/dL (6.5-8.0); Triglycerides 181 mg/dL (<150)
[2025-04-27 03:53] LABS: CT PCR NOT DETECTED (Not Detect.); NG PCR NOT DETECTED (Not Detect.)
[2025-04-27 08:16] LABS: HBS Num1 1.39 mIU/mL (0-7.99); HBc Num1 0.06 S/CO (0.00-0.79); HBsAGNum1 0.34 S/CO (0.00-0.99); HIV Num 1 0.06 S/CO (0.00-0.99); Hepatitis B Surface Antigen Negative (Negative); ~HepC Num1 0.09 S/CO (0.00-0.79); ~Hepatitis B Surface Antibody NONREACTIVE (Nonreactive); ~Hepatitis C Antibody Nonreactive (Nonreactive)
[2025-04-27 21:48] LABS: HCV Log PCR <1.18 NOT DETECTED Log IU/mL (NOT DETECTED); HepC Viral Load <15 NOT DETECTED IU/mL (NOT DETECTED)
[2025-04-29 04:14] LABS: ~Hepatitis A Antibody IgG 0.34 S/CO (0.00-0.99)
[2025-04-29 05:38] LABS: TS Negative Control Passed; TS Panel A 0; TS Panel B 1; TS Positive Control Passed; TSpotTB Negative (Negative)
== END 2025-04-26 13:38 | disposition home or self-care (01) ==
LOC: HO.HHCL 13:37
PROVIDERS: Referring Provider Emergency Medicine; Visit Provider Registered Nurse
DX: Z00.00 Encounter for general adult medical examination without abnormal findings (principal); F11.20 Opioid dependence, uncomplicated; R30.0 Dysuria
CPT/HCPCS: 36415; 80053; 80061; 80076; 81001; 82248; 83036; 83615; 84443; 85025; 85652; 86481; 86592; 86704; 86706; 86708; 86803; 87340; 87389; 87491; 87522; 87591